=== PATIENT | male | born 1945 | race Caucasian/White ===

== ENCOUNTER 2022-08-11 11:59 | Outpatient (REF) | payer MEDICARE, BC, SELFPAY ==
[2022-08-11 13:23] LABS: MANUAL DIFF FLAG NO
[2022-08-11 13:27] LABS: Basophils Percent Auto 0.3 % (0-2); Eosinophils Percent Auto 0.5 % (0-4); Hemoglobin 14.3 g/dl (14.0-18.0); Imm Gran Abs Auto 0.02 X10*3/uL (0.00-0.03); Imm Gran Pct Auto 0.3 % (0.0-0.4); Lymphocytes Absolute Auto 0.7 X10*3/uL (1.2-4.9); Lymphocytes Percent Auto 11.2 % (20-40); Mean Corpuscular HGB Conc 33.3 g/dl (31.0-36.0); Mean Corpuscular Hemoglobin 30.9 pg (27.0-33.0); Mean Corpuscular Volume 92.9 fL (80.0-98.0); Mean Platelet Volume 9.8 fL (9.4-12.4); Monocytes Absolute Auto 0.6 X10*3/uL (0.1-1.2); Monocytes Percent Auto 9.9 % (2-11); Neutrophils Absolute Auto 4.8 x10*3/uL (2.0-8.3); Neutrophils Percent Auto 77.8 % (45-73); Platelet Count 166 X10*3/uL (160-400); Red Blood Count 4.63 X10*6/uL (4.60-5.80); Red Cell Distribution Width 12.3 % (11.0-16.0); White Blood Count 6.2 X10*3/uL (4.8-10.8)
[2022-08-11 14:04] LABS: Alanine Aminotransferase 16 U/L (0-40); Albumin Level 4.3 g/dL (3.5-5.0); Alkaline Phosphatase 75 U/L (39-117); Anion Gap 11 (12-20); Aspartate Amino Transferase 17 U/L (5-37); Bilirubin Total 0.9 mg/dL (0.0-1.0); Blood Urea Nitrogen 21 mg/dL (9-16); Calcium 9.3 mg/dL (8.4-10.2); Carbon Dioxide 31 mmol/L (22-29); Chloride 105 mmol/L (96-108); Estimated Glomerular Filt Rate > 60; Glucose Random 93 mg/dL (60-115); Magnesium 2.3 mg/dL (1.6-2.6); Potassium 4.1 mmol/L (3.3-5.1); Sodium 143 mmol/L (135-145); Total Protein 6.7 g/dL (6.5-8.0)
[2022-08-11 14:15] LABS: Erythrocyte Sedimentation Rate 7 MM/HR (0-15)
[2022-08-11 15:17] LABS: Folate 14.5 ng/mL (> or = 4.0); Free T4 (Free Thyroxine) 0.95 ng/dL (0.71-1.85); Thyroid Stimulating Hormone 2.85 uIU/mL (0.32-4.0); Vitamin B12 436 pg/mL (200-900)
== END 2022-08-11 12:00 | disposition home or self-care (01) ==
LOC: HO.10HDL 11:59
PROVIDERS: Visit Provider Internal Medicine Medical Oncology
DX: I25.10 Atherosclerotic heart disease of native coronary artery without angina pectoris (principal); C44.91 Basal cell carcinoma of skin, unspecified; C32.9 Malignant neoplasm of larynx, unspecified; E78.2 Mixed hyperlipidemia
CPT/HCPCS: 36415; 80053; 82607; 82746; 83735; 84134; 84439; 84443; 85025; 85652

== ENCOUNTER 2022-08-18 07:42 | Outpatient (REF) | payer MEDICARE, BC, SELFPAY ==
--- NOTE | ~2022-08-18 | CT_ITS ---
EXAMINATION: CT HEAD WITHOUT CONTRAST CLINICAL INFORMATION: Malignant neoplasm of the larynx. Worsening neurologic problems. Difficulty walking, and drooling. COMPARISON: None available. TECHNIQUE: Contiguous axial imaging was performed from the skull base to vertex without intravenous administration of contrast. This CT examination was performed using dose optimization techniques as appropriate, variously including the following: *Automated exposure control *Adjustment of mA and/or kV according to patient size (this includes techniques or standardized protocols for targeted exams where dose is matched to indication/reason for exam; i.e. extremities or head) *Use of iterative reconstruction technique DLP: 831 mGy-cm FINDINGS: There is no evidence of an extra-axial collection. There is no evidence of intra-axial or extra-axial hemorrhage. The ventricles and extra-axial CSF spaces are prominent suggestive of mild generalized atrophy. 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 No mass, mass effect or acute infarct. Review at bone windows is normal. No skull fracture or bone lesion. Visualized paranasal sinuses, mastoid air cells and middle ears are clear. 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
== END 2022-08-18 07:43 | disposition home or self-care (01) ==
LOC: HO.CT 07:42
PROVIDERS: PCP Internal Medicine Medical Oncology; Visit Provider Internal Medicine Medical Oncology
DX: C32.9 Malignant neoplasm of larynx, unspecified (principal)
CPT/HCPCS: 70450

== ENCOUNTER 2022-08-27 11:17 | Outpatient (REF) | payer MEDICARE, SELFPAY ==
--- NOTE | ~2022-08-27 | FL_ITS ---
EXAMINATION: FL MODIFIED BARIUM SWALLOW CLINICAL INFORMATION: Malignant neoplasm of larynx. COMPARISON: None available. TECHNIQUE: Routine modified barium swallow was performed in lateral projection in presence of speech therapist. FINDINGS: On oral administration of thin barium, nectar consistency barium, there is clark laryngeal penetration or aspiration. Otherwise there is normal propagation of bolus with all consistencies of barium from the oral cavity through the pharynx into the cervical esophagus. There is normal oral mastication of solid food. FLUOROSCOPY TIME: 4.1 minutes DOSE AREA PRODUCT: 3.438 uGy-m2 (microgray-meter squared) FL/FL barium swallow modified IMPRESSION: Laryngeal aspiration seen with thin barium and nectar consistency barium. Correlate with speech therapy results.
--- NOTE | 2022-09-01 09:28 | MHC.SL.IMP ---
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 Pt attended this exam accompanied by his son-in-law. Pt denies having any trouble swallowing. Pt denies odynophagia and globus sensation. Pt reports he eats regular textures and has no difficulties with liquids. His son-in-law reports at times pt has difficulty managing saliva. Pt had a head CT on 08/18/22 which showed, ?mild generalized atrophy and old-appearing right frontoparietal infarct.? Oral Motor Exam Mouth Occlusion: Normal Oral-Facial Teeth Characteristics: Partially Missing Oral-Facial Teeth Miscellaneous Observation: Pt reports having no back molars Tongue Size: Normal Tongue Excursion Description: Normal Tongue Range of Movement Description: Normal Tongue Speed of Movement Description: Normal Tongue Strength of Movement (against opposing pressure): Normal Food and Liquid Trials: Oral Impairment: Lip Closure: 0=No labial escape Oral Impairment: Tongue Control During Bolus Hold: Did not test Oral Impairment: Bolus Preparation/Mastication: 1=Slow prolonged chewing/mashing with complete re-collection Oral Impairment: Bolus Transport/Lingual Motion: 3=Repetitive/disorganized tongue motion Oral Impairment: Oral Residue: 2=Residue collection on oral structures Oral Impairment:Initiation of Pharyngeal Swallow: 1=Bolus head in valleculae Pharyngeal Impairment: Soft Palate Elevation: 0=No bolus between soft palate (SP)/pharyngeal wall (PW) Pharyngeal Impairment: Laryngeal Elevation: 0=Complete superior movement of thyroid cartilage (see description) Pharyngeal Impairment: Anterior Hyoid Excursion: 1=Partial anterior movement Pharyngeal Impairment: Epiglottic Movement: 1=Partial inversion Pharyngeal Impairment: Laryngeal Vestibular Closure:: 1=Incomplete: narrow column air/contrast in laryngeal vestibule Pharyngeal Impairment: Pharyngeal Stripping Wave: 0=Present: complete Pharyngeal Impairment: Pharyngeal Contraction: Did not test Pharyngeal Impairment: Pharyngoesophageal Segment Openin=Complete distension and complete duration: no obstruction of flow Pharyngeal Impairment: Tongue Base (TB) Retraction: 2=Narrow column of contrast/air between TB and posterior PW Pharyngeal Impairment: Pharyngeal Residue: 2=Collection of residue within or on pharyngeal structures Pharyngeal Impairment: Esophageal Clearance Upright Position: Did not test Impressions and Recommendations Clinical Observations: OBJECTIVE: Time-out: performed at 11:50 Evaluation Start: 11:30; Stop: 11:38 Patient Positioning: Seated 70-90 degrees Viewing Planes: LATERAL ONLY Contrast: MBSImP? Standardized Protocol using commercially prepared, standardized Barium viscosities, including: Varibar? THIN LIQUID (40% w/v, <15 cps) , Varibar? NECTAR (40% w/v, <150-450 cps) , Varibar? THIN HONEY (40% w/v, <800-1800 cps) , 1/2 Shortbread Cookie (1 x1 x.25 ) MBSImP ID: [id number] MBSImP Results: Lip closure for intraoral bolus containment resulted in no labial escape. Tongue control during bolus hold could not be assessed due to logistical reasons not related to physiologic impairment. Bolus preparation and mastication resulted in slow, prolonged chewing/mashing but with complete re-collection. Bolus transport/lingual motion was with repetitive/disorganized motion of the tongue. Oral residue was a collection on oral structures. Initiation of the pharyngeal swallow occurred when the bolus head was in the valleculae. Soft palate elevation resulted in no bolus between the soft palate and the pharyngeal wall. Laryngeal elevation demonstrated complete superior movement of the thyroid cartilage with complete approximation of the arytenoids to the epiglottic petiole. Anterior hyoid excursion demonstrated partial anterior movement. Epiglottic movement resulted in partial inversion. Laryngeal vestibular closure was incomplete, with a narrow column of air/contrast noted within the laryngeal vestibule at the height of the swallow. Pharyngeal stripping wave was present and complete. Pharyngeal contraction could not be determined due to logistical reasons not related to physiologic impairment. Pharyngoesophageal segment opening was completely distended for complete duration with no obstruction of bolus flow. Tongue base retraction allowed a narrow column of contrast or air between the retracted tongue base and the posterior pharyngeal wall. Pharyngeal residue was a collection of residue within or on pharyngeal structures. Esophageal clearance in the upright position could not be assessed due to logistical reasons not related to physiologic impairment. Oral Impairment Score: 7 (absence of score, component 2) Pharyngeal Impairment Score: 7 (absence of score, component 13) Esophageal Impairment Score: --- (absence of score, component 17) Laryngeal Penetration and Aspiration: Aspiration was observed in today's study. [place]-thick, Thin Contrast entered the airway, passed below the vocal folds, and no effort were made to eject. ASSESSMENT: This exam was conducted by a multidisciplinary team, which included a speech pathologist, radiologist, and low voltage technician. Pt was seated upright at 90 degrees for lateral view only. Pt trialed the following liquid and solid consistencies: thin liquid barium by cup, nectar thick liquid barium by cup, honey thick liquid barium by cup, pureed solid (applesauce mixed with barium paste), ground solid (mixture chicken salad with barium paste), regular solid (Taty Doone cookie coated with barium paste), whole barium pill tablet with sips of nectar thick barium. There was good lip closure with no anterior escape of bolus. Mastication was mildly prolonged and slowed. Posterior lingual motion characterized by repetitive tongue pumping. There was mild residue on the tongue and the hard palate, which cleared with subsequent swallows. Pharyngeal swallow trigger initiated as the bolus head reached the valleculae. There was no nasopharyngeal reflux. Partial anterior hyoid excursion. The epiglottis was notably inverted, resulting in incomplete closure as well as increased vallecular retention. Laryngeal vestibular closure was incomplete. There was clark aspiration during the swallow on trials of thin liquid. Thin liquid barium entered the airway and passed below the vocal folds, with no reflexive cough response. Pt was prompted to elicit a volitional cough. Pt?s cough was weak and did not clear the contrast from the airway. Episode of aspiration on trial of nectar thick liquid, with contrast entering the airway and passing below the vocal folds during the swallow. Again, pt did not produce a spontaneous cough response. He was prompted for a strong, volitional cough again, which appeared to at least reduce contrast from the airway. There was trace residue on the tongue base and posterior pharyngeal wall. Mild to moderate retention in the valleculae. Pt was able to reduce vallecular collection with multiple dry swallows, with and without chin tuck positioning. Barium pill tablet passed through the oral cavity and pharynx with no hang up. The following compensatory strategies have not been used until today's study, but when employed, improved swallowing function: Honey-thick Liquid eliminated Penetration, Aspiration Bolus Volume Change decreased Oral Residue, Pharyngeal Residue Rate of Ingestion Change decreased Oral Residue, Pharyngeal Residue Chin Tuck decreased Pharyngeal Residue Additional Swallow(s) per Bolus decreased Oral Residue, Pharyngeal Residue Liquid Intake Recommendation: Honey Thick Liquid Intake Strategies: Small Sips, No Straws, Double Swallow Dietary Recommendations: Regular (soft, easy to chew) Medication Administration: Whole with Puree Please contact the pharmacy regarding appropriate crushable or liquid drug formulations that are available whenever modified delivery is recommended. Compensatory Strategies Recommended: Sitting Upright (90 deg), Double Swallow, No Straw, Small Bites and Sips, Rate of Ingestion Change, Avoid Specific Foods Supervision during eating and or drinking: Total Supervision (1:1) Recommended Treatments: Compens. Strategy Educat. Recommendation for Speech Therapy: Outpatient Speech Therapy Modified Barium Swallow Study - Outpatient Text Comment: PLAN: Intake Recommendations: Route: PO Diet Grade: Regular Liquid Consistencies: Honey Post-Study Functional Oral Intake Scale (FOIS): 5- Total oral intake of multiple consistencies requiring special preparation Pt presents with moderate oropharyngeal dysphagia. This exam revealed silent aspiration with trials of thin liquid and nectar thick liquid due to incomplete closure of laryngeal structures. There was mild to moderate collection of contrast in the valleculae due to inverted position of the epiglottis. Pt was able to reduce residuals with multiple swallows (with and without chin tuck position on dry swallow only). Pt reports he does not have any back molars. Recommend HONEY THICK liquid by teaspoon or individual cup sip; recommend pt to self-select soft, easy to chew textures. Pt is at risk of aspiration, thus is recommended STRICT ASPIRATION PRECAUTIONS: -Oral care before first meal and after each subsequent meal -Sit upright during PO intake and for at least 30 minutes afterwards -Moisten food with sauces and gravies, which are thickened to honey consistency, and mixed/blended in well with food -Avoid sticky, crunchy, or hard foods -Avoid mixed textures and thin sauces (liquid from puree; soups; cereal with milk) -Take small bites and chew food well -Follow each bite with 1-2 dry swallows to promote pharyngeal clearance -Take small, individual sips by spoon or cup -Follow each sip with 1-2 dry swallows to promote pharyngeal clearance -Avoid the use of straws Recommend weekly visits with INTERNAL COMMUNICATIONS SPECIALIST for dysphagia treatment targeting further education (RE: MBSS results, risk of aspiration, recommended dysphagia diet guidelines, aspiration precautions), compensatory strategies, and to trial pharyngeal strengthening exercises; with repeat-MBSS in 15 weeks. Pt may also benefit from referral to Neurology, given impaired swallow and previous head CT showing ?old-appearing infarct.? Therapy Recommendations: Therapy will be continued Frequency per Week: 1 Number of Weeks: 8; repeat MBSS Prognosis for Improvement: The prognosis for the patient to meet nutritional needs by mouth is fair based on degree of impairment, stimulability for treatment. Group Home Goals: ? The patient will tolerate the least restrictive diet with a safe/efficient swallow to maintain adequate nutrition and hydration. ? The patient and/or family will participate in further education for swallowing goals. Short Term Goals: ? Diet - The patient will tolerate a regular diet with honey thick liquids without signs or symptoms of penetration/aspiration 100% of the time. ? Guidelines - The patient will comply with/recall the following guidelines/strategies 100% of the time with minimal cuing: Honey-thick Liquid, Bolus Volume Change, Rate of Ingestion Change, Chin Tuck, Additional Swallow(s) per Bolus. ? Education - The patient, family, caregiver will verbalize/demonstrate understanding of the results of this evaluation, the above recommendations, and the swallowing guidelines. Frequency/Duration: 1x weekly x 8 weeks Date Range for Service Requested: Timeline to reassess: 3 months Clinician - Supplemental, Miscellaneous Communication: It is important to note MBSS objective studies are snapshots in time and Patient function might vary with factors such as time of day or concomitant medical conditions. For this reason, the final treatment plan for this patient should rest with their medical care team. Additional recommendations should be considered with the totality of the Patient in mind. Thank for the opportunity to participate in the care of this patient. If you have any questions about the content of this report, please contact the [facility] at [facility]. Education: Education regarding findings from today's study and plans for therapy were provided to Patient and family/caregiver through Verbal Instruction. Understanding was expressed by the Patient and family/caregiver. Tenant Relations Coordinator Clinician/Clinical Fellow: No Supervisory Statement: N/A Speech Language Pathologist: Patricia Palacios M.A., [facility]-INTERNAL COMMUNICATIONS SPECIALIST
--- NOTE | 2022-09-29 13:19 | MHC.SPEECHCO ---
humanities coordinator called pt's contact number to schedule outpatient speech therapy for dysphagia. Pt's requested she speak with pt's daughter. Per daughter, pt is receiving [facility]. Family will discuss with visiting FLOORING MACHINE OPERATOR whether continued services are recommended after discharge from [facility], and will contact [facility] to schedule if that is the case.
== END 2022-08-27 11:18 | disposition home or self-care (01) ==
LOC: HO.XRAY 11:17
PROVIDERS: PCP Internal Medicine Medical Oncology; Visit Provider Internal Medicine Medical Oncology
DX: C32.9 Malignant neoplasm of larynx, unspecified (principal); R13.12 Dysphagia, oropharyngeal phase
CPT/HCPCS: 74230; 92611

== ENCOUNTER 2022-08-30 04:39 | Emergency (ER) | payer MEDICARE, SELFPAY ==
[2022-08-30] VITALS (12 sets, daily range): BP systolic 111–158; BP diastolic 65–96; PULSE 51–80; RESP 13–16; TEMP 36.6–36.8; O2SAT 93–97; BMI 24.3
--- NOTE | ~2022-08-30 | XR_ITS ---
EXAMINATION: XR CHEST CLINICAL INFORMATION: Cough. COMPARISON: None available. TECHNIQUE: Frontal view of the chest was obtained. FINDINGS: The lungs are well-expanded and clear of acute pneumonic process. There is a 4 mm calcified nodule left upper lobe likely granuloma. Heart size and pulmonary vascularity is normal. No gross bony abnormality seen. XR/XR chest 1V IMPRESSION: 4 mm calcified nodule left upper lobe. No acute cardiopulmonary process seen.
--- NOTE | ~2022-08-30 | CT_ITS ---
EXAMINATION: CT HEAD WITHOUT CONTRAST CLINICAL INFORMATION: Head injury. Altered mental status. COMPARISON: CT head from 08/18/2022. TECHNIQUE: Contiguous axial imaging was performed from the skull base to vertex without intravenous administration of contrast. This CT examination was performed using dose optimization techniques as appropriate, variously including the following: *Automated exposure control. *Adjustment of mA and/or kV according to patient size (this includes techniques or standardized protocols for targeted exams where dose is matched to indication/reason for exam; i.e. extremities or head). *Use of iterative reconstruction technique. DLP: 1454 mGy-cm FINDINGS: There is chronic encephalomalacia within the anterolateral right frontal lobe with associated volume loss. No additional loss of liu-white matter differentiation. No evidence of acute intracranial hemorrhage. Scattered and partially confluent hypoattenuation in the periventricular and deep white matter are consistent with mild to moderate microangiopathy. Proportional prominence of the ventricles and sulcal spaces without evidence of obstructive hydrocephalus. No abnormal mass effect or midline shift. No extra-axial fluid collections. No acute soft tissue or osseous abnormalities. The mastoid air cells and visualized paranasal sinuses are clear. CT/CT head/brain wo IV con IMPRESSION: 1. No evidence of acute intracranial hemorrhage or edematous territorial infarction. 2. 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 Mild to moderate underlying microangiopathy and generalized cerebral volume loss.
--- NOTE | 2022-08-30 04:51 | ECG_ITS ---
Test Reason : SYNCOPE Blood Pressure : / mmHG Vent. Rate : 065 BPM Atrial Rate : 065 BPM P-R Int : 104 ms QRS Dur : 098 ms QT Int : 430 ms P-R-T Axes : 072 -09 041 degrees QTc Int : 447 ms Sinus rhythm with marked sinus arrhythmia with short SD ST depression, consider subendocardial injury Abnormal ECG No previous ECGs available Referred By: Kelsey Molina Electronically Signed By:NICK MACIEL MD
--- NOTE | 2022-08-30 05:32 | ED_ITS ---
HPI - General Adult General Chief complaint: Fall Stated complaint: Weakness, difficulty ambulating Time Seen by Provider: 08/30/22 04:50 Source: patient and family (Daughter) Mode of arrival: EMS History of Present Illness HPI narrative: 77-year-old male is brought in by EMS after they were called for a lift assist and patient was noted to have found his way out of the bed that had a bed rail. The was unable to help him up and had to call EMS. Patient has had ongoing hallucinations for over a month, he was recently started on Parkinson's medication that did help with baseline tremors. 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 As per the daughter they have initiated placement through [facility], patient has not had any issues with fever, chills, nausea, vomiting. He walks with a walker at baseline. Related Data Home Medications Medication Instructions Recorded Confirmed aspirin 81 mg PO DAILY 08/30/22 08/30/22 atorvastatin 10 mg tablet 10 mg PO DAILY 08/30/22 08/30/22 carbidopa 25 mg-levodopa 100 mg tab PO 08/30/22 tablet metoprolol succinate 25 mg 25 mg PO DAILY 08/30/22 08/30/22 tablet,extended release 24 hr mirtazapine 15 mg tablet 15 mg PO BEDTIME 08/30/22 08/30/22 mupirocin 2 % topical ointment topical QD-BID 08/30/22 tamsulosin 0.4 mg capsule 0.4 mg PO DAILY 08/30/22 08/30/22 Allergies Allergy/AdvReac Type Severity Reaction Status Date / Time No Known Allergies Allergy Verified 08/30/22 05:59 Review of Systems Review of Systems: Pertinent positives and negatives as stated in HPI [facility] Past Medical History Source: nursing notes reviewed Social History Social History Alcohol intake: current Alcohol intake frequency: holidays/special occasions only Alcohol type: wine Smoked in Last 30 Days: No Use of substances other than those prescribed or required for medical reasons: No Advance Directives: No Advance Directives Information Provided: No Physical Exam ED Vital Signs: Vital Signs - 24 hr 08/30/22 04:47 Temperature 98.3 F Pulse Rate 67 Respiratory Rate 16 Blood Pressure 146/75 H Pulse Oximetry 96 Oxygen Delivery Method Room Air BMI result Body Mass Index 24.3 VITAL SIGNS: Reviewed. GENERAL: Well developed, well nourished, in no acute distress. HEAD: Normocephalic/atraumatic EYES: PERRLA, EOMI EARS: Ext canals without abnormality NOSE: Nares patent bilateral OROPHARYNX: no oral lesions noted, posterior pharynx clear NECK: Supple, no adenopathy LUNGS: Normal breath sounds. No adventitious sounds or accessory muscle use. SpO2<96> CARDIOVASCULAR: Regular rate and rhythm without noted murmurs, no JVD or lower extremity edema. ABDOMEN: Soft, non-tender, non-distended with bowel sounds. MUSCULOSKELETAL: No tenderness, deformities, or effusions noted on gross inspection. EXTREMITIES: No cyanosis, clubbing or edema; superficial abrasion noted to the left knee SKIN: Inspection of the skin reveals no rashes, ulcerations, jaundice, pallor, or petechiae. NEUROLOGIC: Alert and oriented x 2. Strength and sensation to light touch were grossly intact x 4, baseline tremors noted, left corner of the mouth droop. Medical Decision Making Medical Decision Making MDM Narrative: 77-year-old male with history and clinical exam findings consistent with weakened in chronically debilitated state, after hearing the history he appears to ever in brought here for expeditious placement given 's difficulties with being able to care for him at home. He otherwise is alert and interactive, but story is inaccurate as he will tell you that they had company over and they went to see a soccer match which is untrue. - labs, UA, EKG I reviewed all investigations and patient is medically cleared for further evaluation by case management and physical therapy. I have noted the elevation in sodium and chloride and suspect that this will resolve with encouragement of water. Patient placed in physician observation because the patient needed more time for evaluation by case management and physical therapy. At the time observation was started the patient's vital signs were stable, patient is alert and disoriented at baseline, neuro: Nonfocal, CV RRR, lungs clear Differential Diagnosis Please see the discussion above Lab Data Please see the discussion above 08/30/22 05:43 08/30/22 05:43 Labs: Lab Results 08/30/22 08/30/22 08/30/22 Range/Units 05:43 05:43 05:43 WBC 7.9 (4.8-10.8) X10*3/uL RBC 4.29 L (4.60-5.80) X10*6/uL Hgb 13.5 L (14.0-18.0) g/dl Hct 40.9 L (42.0-52.0) % MCV 95.3 (80.0-98.0) fL MCH 31.5 (27.0-33.0) pg MCHC 33.0 (31.0-36.0) g/dl RDW 12.5 (11.0-16.0) % Plt Count 172 (160-400) X10*3/uL MPV 9.3 L (9.4-12.4) fL Immature Gran % (Auto) 0.3 (0.0-0.4) % Neut % (Auto) 78.2 H (45-73) % Lymph % (Auto) 11.3 L (20-40) % [place] % (Auto) 8.5 (2-11) % Eos % (Auto) 1.3 (0-4) % Baso % (Auto) 0.4 (0-2) % Lymph # (Auto) 0.9 L (1.2-4.9) X10*3/uL [place] # (Auto) 0.7 (0.1-1.2) X10*3/uL Eos # (Auto) 0.1 (0.0-0.4) X10*3/uL Baso # (Auto) 0.0 (0.0-0.2) X10*3/uL Abs Immat Gran (auto) 0.02 (0.00-0.03) X10*3/uL Absolute Neuts (auto) 6.2 (2.0-8.3) x10*3/uL Absolute Nucleated RBC 0.000 (0.0-0.012) X10*3/uL Nucleated RBC % (auto) 0.0 (0.0-0.2) /100WBC PT 11.1 (10.0-13.1) SEC INR 1.0 (0.9-1.1) Sodium 148 H (135-145) mmol/L Potassium 4.5 (3.3-5.1) mmol/L Chloride 111 H (96-108) mmol/L Carbon Dioxide 27 (22-29) mmol/L Anion Gap 15 (12-20) BUN 24 H (9-16) mg/dL Creatinine 1.10 (0.5-1.4) mg/dL Estim Creat Clear Calc 62.7 Estimated GFR > 60 Random Glucose 125 H (60-115) mg/dL Calcium 9.6 (8.4-10.2) mg/dL Total Bilirubin 0.6 (0.0-1.0) mg/dL AST 18 (5-37) U/L ALT 11 (0-40) U/L Alkaline Phosphatase 98 (39-117) U/L Troponin I High Sens (<3.5-35.0) ng/L Total Protein 6.9 (6.5-8.0) g/dL Albumin 4.2 (3.5-5.0) g/dL Urine Color Urine Appearance Urine pH (5.0-9.0) Ur Specific [place] (1.005-1.025) Urine Protein (Neg-Trace) mg/dL Urine Glucose (UA) (Negative) mg/dL Urine Ketones (Negative) mg/dL Urine Blood (Negative) Urine Nitrite (Negative) Ur Leukocyte Esterase (Negative) 08/30/22 08/30/22 Range/Units 05:43 06:10 WBC (4.8-10.8) X10*3/uL RBC (4.60-5.80) X10*6/uL Hgb (14.0-18.0) g/dl Hct (42.0-52.0) % MCV (80.0-98.0) fL MCH (27.0-33.0) pg MCHC (31.0-36.0) g/dl RDW (11.0-16.0) % Plt Count (160-400) X10*3/uL MPV (9.4-12.4) fL Immature Gran % (Auto) (0.0-0.4) % Neut % (Auto) (45-73) % Lymph % (Auto) (20-40) % [place] % (Auto) (2-11) % Eos % (Auto) (0-4) % Baso % (Auto) (0-2) % Lymph # (Auto) (1.2-4.9) X10*3/uL [place] # (Auto) (0.1-1.2) X10*3/uL Eos # (Auto) (0.0-0.4) X10*3/uL Baso # (Auto) (0.0-0.2) X10*3/uL Abs Immat Gran (auto) (0.00-0.03) X10*3/uL Absolute Neuts (auto) (2.0-8.3) x10*3/uL Absolute Nucleated RBC (0.0-0.012) X10*3/uL Nucleated RBC % (auto) (0.0-0.2) /100WBC PT (10.0-13.1) SEC INR (0.9-1.1) Sodium (135-145) mmol/L Potassium (3.3-5.1) mmol/L Chloride (96-108) mmol/L Carbon Dioxide (22-29) mmol/L Anion Gap (12-20) BUN (9-16) mg/dL Creatinine (0.5-1.4) mg/dL Estim Creat Clear Calc Estimated GFR Random Glucose (60-115) mg/dL Calcium (8.4-10.2) mg/dL Total Bilirubin (0.0-1.0) mg/dL AST (5-37) U/L ALT (0-40) U/L Alkaline Phosphatase (39-117) U/L Troponin I High Sens 7.2 (<3.5-35.0) ng/L Total Protein (6.5-8.0) g/dL Albumin (3.5-5.0) g/dL Urine Color Yellow Urine Appearance Clear Urine pH 7.5 (5.0-9.0) Ur Specific [place] 1.020 (1.005-1.025) Urine Protein Negative (Neg-Trace) mg/dL Urine Glucose (UA) Negative (Negative) mg/dL Urine Ketones Negative (Negative) mg/dL Urine Blood Negative (Negative) Urine Nitrite Negative (Negative) Ur Leukocyte Esterase Negative (Negative) Independent Interpretation I performed an independent interpretation of an: EKG Interpretation: Sinus rhythm, HR-65, no STEMI, ID/QRS/QTC is within normal limits, ST depressions are questionable with the background artifact. Radiology Impression Radiologist Impression: My interpretation is in agreement with radiology's impression of the imaging studies. Discharge Plan Discharge Clinical Impression: Physical deconditioning, Parkinson's disease Patient Disposition: Still a Patient Prescriptions: No Action atorvastatin 10 mg tablet 10 mg PO DAILY tamsulosin 0.4 mg capsule 0.4 mg PO DAILY mupirocin 2 % ointment topical QD-BID mirtazapine 15 mg tablet 15 mg PO BEDTIME metoprolol succinate 25 mg tablet extended release 24 hr 25 mg PO DAILY carbidopa-levodopa 25-100 mg tablet PO aspirin 81 mg 81 mg PO DAILY
[2022-08-30 05:48] LABS: Basophils Percent Auto 0.4 % (0-2); Eosinophils Absolute Auto 0.1 X10*3/uL (0.0-0.4); Eosinophils Percent Auto 1.3 % (0-4); Hematocrit 40.9 % (42.0-52.0); Hemoglobin 13.5 g/dl (14.0-18.0); Imm Gran Abs Auto 0.02 X10*3/uL (0.00-0.03); Imm Gran Pct Auto 0.3 % (0.0-0.4); Lymphocytes Absolute Auto 0.9 X10*3/uL (1.2-4.9); Lymphocytes Percent Auto 11.3 % (20-40); MANUAL DIFF FLAG NO; Mean Corpuscular Hemoglobin 31.5 pg (27.0-33.0); Mean Corpuscular Volume 95.3 fL (80.0-98.0); Mean Platelet Volume 9.3 fL (9.4-12.4); Monocytes Absolute Auto 0.7 X10*3/uL (0.1-1.2); Monocytes Percent Auto 8.5 % (2-11); Neutrophils Absolute Auto 6.2 x10*3/uL (2.0-8.3); Neutrophils Percent Auto 78.2 % (45-73); Platelet Count 172 X10*3/uL (160-400); Red Blood Count 4.29 X10*6/uL (4.60-5.80); Red Cell Distribution Width 12.5 % (11.0-16.0); White Blood Count 7.9 X10*3/uL (4.8-10.8)
[2022-08-30 05:53] LABS: Prothrombin Time 11.1 SEC (10.0-13.1)
--- OUTSIDE RECORDS SUMMARY | 2022-08-30 05:58 | XMS_ITS | Continuity of Care Document ---
Author Name Unknown Organization [facility] Address [address] [place] [phone]- Care Team Providers Care Gre Tutor Name Role Phone Rancho Burden MD Primary Care Physician Encounter [facility] [place] Date(s): 10/15/20 - 10/22/20 [facility] [address] [place] [id number] Attending Physician: Kael Angeles MD Admitting Physician: Kael Angeles MD Referring Physician: Rancho Burden MD Allergies, Adverse Reactions, Alerts Substance Reaction Severity Status NKA Active Medications acetaminophen 500 mg oral tablet By Mouth, Every 6 hours, 0 Refills, Maintenance, 09/21/13 12:36:31, Tablet Start Date: 09/21/13 Status: Ordered aspirin 325 mg oral tablet 1 tablet = 325 mg, By Mouth, Daily, # 30 tablet, 0 Refills, Maintenance, 09/20/13 21:07:09, Tablet Start Date: 09/20/13 Status: Ordered atorvastatin 10 mg oral tablet 1 tablet = 10 mg, By Mouth, Daily at bedtime, # 30 tablet, 0 Refills, Maintenance, 09/20/13 21:06:42, Tablet Start Date: 09/20/13 Status: Ordered Compression Stockings See Instructions, # 2 each, Refills 2, Tot. Refills 2, Maintenance, surgical, knee length 20-30 mm Hg DX Varicose Veins, 07/24/20 13:53:00 EDT, Supply Start Date: 07/24/20 Status: Ordered LORazepam 1 mg oral tablet 1 tablet = 1 mg, By Mouth, 3 times a day, PRN for anxiety, 0 Refills, Maintenance, 07/24/20 12:54:00 EDT, Tablet, Partial fill upon patient request if the prescription is for a schedule II opioid drug. Start Date: 07/24/20 Status: Ordered metoprolol 25 mg oral tablet 1 tablet = 25 mg, By Mouth, 2 times a day, # 60 tablet, 0 Refills, Maintenance, 09/20/13 21:06:08, Tablet Start Date: 09/20/13 Status: Ordered Vitamin D3 1000 intl units oral capsule 1 capsule = 1,000 International_Units, By Mouth, Daily, # 100 capsule, 0 Refills, Maintenance, 07/24/20 12:55:00 EDT, Capsule, Partial fill upon patient request if the prescription is for a schedule II opioid drug. Start Date: 07/24/20 Status: Ordered
--- OUTSIDE RECORDS SUMMARY | 2022-08-30 05:58 | XMS_ITS | Continuity of Care Document ---
Author Name Unknown Organization [facility] Address [address] [place] [id number]- Care Team Providers Care Customer Retention Representative Name Role Phone Rancho Burden MD Primary Care Physician En[place] [facility] [place] [facility] [place] [id number] Date(s): 10/15/20 - 11/14/20 [facility] [address] [place], [place] [address] Attending Physician: Ean Patel Admitting Physician: AdmtrEna Referring Physician: AdmtrEna Allergies, Adverse Reactions, Alerts Substance Reaction Severity [...]
--- OUTSIDE RECORDS SUMMARY | 2022-08-30 05:58 | XMS_ITS | Continuity of Care Document ---
Author Name Unknown Organization [facility] Address [address] [place] [phone]- Care Team Providers Care Die Engraver Name Role Phone Bertram FRANCIS, Rancho Longoria Primary Care Physician [place] [facility] [place] [id number] Date(s): 08/01/20 - 08/31/20 [facility] [address] [place], [place] [address] Attending Physician: Ena Patel Admitting Physician: AdmtrEna Referring Physician: Admtr ArLayton Allergies, Adverse Reactions, Alerts Substance Reaction Severity [...]
--- OUTSIDE RECORDS SUMMARY | 2022-08-30 05:58 | XMS_ITS | Continuity of Care Document ---
Author Name Unknown Organization [facility] Address [address] [place] [phone]- Care Team Providers Care Rubber Stamp Dies Inspector Name Role Phone Rancho Burden MD Primary Care Physician Encounter [facility] [place] Date(s): 08/06/20 - 08/13/20 [facility] [address] [place], [place] [address] Attending Physician: Kael Angeles MD Admitting Physician: [...]
--- OUTSIDE RECORDS SUMMARY | 2022-08-30 05:58 | XMS_ITS | Continuity of Care Document ---
Author Name Unknown Organization [facility] Address [address] [place] [phone]- Care Team Providers Care Gas Meter Reader Name Role Phone Rancho Burden MD Primary Care Physician [place] [facility] [place](s): 01/12/21 - 03/06/21 [facility] [address] [place], [place] [address] Attending Physician: Kael Angeles MD Admitting Physician: [...]
--- OUTSIDE RECORDS SUMMARY | 2022-08-30 05:58 | XMS_ITS | Continuity of Care Document ---
Author Name Unknown Organization [facility] Address [address] [place] [phone]- Care Team Providers Care Learning And Development Manager Name Role Phone Rancho Burden MD Primary Care Physician En[place] [facility] [place] Date(s): 08/01/20 - 08/31/20 [facility] [address] [place], [place] [address] Allergies, Adverse Reactions, Alerts Substance Reaction Severity [...]
--- OUTSIDE RECORDS SUMMARY | 2022-08-30 05:58 | XMS_ITS ---
Author Name Allen Jean Address [address] [place] [address] Organization Allen Jean III, MD Address [address] [place] [address] Care Team Providers Care Packer Name Role Phone Allen Jean [facility] [phone] PROBLEMS Type Condition ICD9-CM Code LSR97-JE Code Onset Dates Condition Status SNOMED Code Problem CAD (coronary artery disease) I25.10 Active 57969095 Problem Unilateral inguinal hernia with obstruction and without gangrene, recurrence not specified K40.30 Active 34019369 Problem Benign prostatic hyperplasia without lower urinary tract symptoms N40.0 Active 885888919 Problem Unilateral inguinal hernia without obstruction or gangrene, recurrence not specified K40.90 Active 991338051 Problem Hyperlipemia E78.5 Active 65802408 Problem 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 Active 395076012 Problem Basal cell carcinoma C44.91 Active 133 8007 Problem HTN (hypertension) I10 Active 99727 003 Problem Impaired fasting glucose R73.01 Active 978612987 Problem Parkinson disease G20 Active 680343 00 Problem Excessive daytime sleepiness G47.19 Active 600214497327 Problem Apraxia R48.2 Active 27642649 Problem Rosacea, unspecified L71.9 Active 398 110428 Problem Mixed hyperlipidemia E78.2 Active 267 085931 Problem Gait disorder R26.9 Active 33137064 Problem Anxiety disorder, unspecified F41.9 Active 979413332 Problem Former smoker Z87.891 Active 1694215 Problem Coronary artery disease, unspecified vessel or lesion type, unspecified whether angina present, unspecified whether anvik or transplanted heart I25.10 Active Problem 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 Active Problem Weight loss, abnormal R63.4 Active 26 8125056 Problem Ataxia R27.0 Active ALLERGIES No Known Allergies ENCOUNTERS Encounter Location Date Diagnosis Allen Jean III, MD [address] [place] [address] [place] [address] August, Allen Jean III, MD [address] [place] [address] [place] [address] August, Allen Jean III, MD [address] [place] [address] [place] [address] August, Malignant neoplasm of larynx C32.9 ; Ataxia R27.0 and Urinary tract infection, site not specified N39.0 Allen Jean III, MD [address] [place] [address] [place] [address] August, Malignant neoplasm of larynx C32.9 and Ataxia R27.0 Allen Jean III, MD [address] [place] [address] [place] [address] August, CAD (coronary artery disease ) I25.10 ; Malignant neoplasm of larynx C32.9 ; Ataxia R27.0 ; 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 ; Hyperlipemia E78.5 ; HTN (hypertension) I10 ; Basal cell carcinoma C44.91 ; Anxiety disorder, unspecified F41.9 ; Benign prostatic hyperplasia without lower urinary tract symptoms N40.0 ; Unilateral inguinal hernia without obstruction or gangrene, recurrence not specified K40.90 and Excessive daytime sleepiness G47.19 Allen Jean III, MD [address] [place] [address] [place] [address] Jul, CAD (coronary artery disease ) I25.10 ; Anxiety disorder, unspecified F41.9 ; Impaired fasting glucose R73.01 ; HTN (hypertension) I10 ; Hyperlipemia E78.5 ; Malignant neoplasm of larynx C32.9 and Benign prostatic hyperplasia without lower urinary tract symptoms N40.0 Allen Jean III, MD [address] [place] [address] [place] [address] Jun, Mixed hyperlipidemia E78.2 ; Former smoker Z87.891 ; Unilateral inguinal hernia with obstruction and without gangrene, recurrence not specified K40.30 ; Excessive daytime sleepiness G47.19 ; Coronary artery disease, unspecified vessel or lesion type, unspecified whether angina present, unspecified whether anvik or transplanted heart I25.10 ; Benign prostatic hyperplasia without lower urinary tract symptoms N40.0 ; Malignant neoplasm of larynx C32.9 and HTN (hypertension) I10 Allen Jean III, MD [address] [place] [address] [place] [address] May, Allen Jean III, MD [address] [place] [address] [place] [address] May, Weakness R53.1 ; Coronary artery disease, unspecified vessel or lesion type, unspecified whether angina present, unspecified whether anvik or transplanted heart I25.10 ; Hyperlipidemia, unspecified hyperlipidemia type E78.5 ; Excessive daytime sleepiness G47.19 ; Basal cell carcinoma C44.91 ; HTN (hypertension) I10 ; Malignant neoplasm of larynx C32.9 and Benign prostatic hyperplasia without lower urinary tract symptoms N40.0 IMMUNIZATIONS Vaccine Route Administration Date Status Influenza no Preserv 3 and > Unknown Jan 21, 2014 Administered Influenza no Preserv 3 and > Unknown Jan 21, 2017 Administered Influenza no Preserv 3 and > Unknown Jan 07, 2022 Administered Influenza no Preserv 3 and > Unknown Jan 13, 2018 Administered Influenza no Preserv 3 and > Unknown Jan 07, 2015 Administered FLuzone HD PF Unknown Jan 01, 2020 Administered Influenza no Preserv 3 and > Unknown Dec 31 Administered COVID- 19 Vaccine Unknown July 01, 2020 Administ ered Influenza no Preserv 3 and > Unknown Jan 10, 2013 Administered COVID- 19 Vaccine Unknown June 03, 2020 Administ ered SOCIAL HISTORY Qualifiers Date Former Smoker REASON FOR REFERRAL FUNCTIONAL STATUS PLAN OF CARE Activity Details VITAL SIGNS Height 70 in 2022-08-11 Height 70 in 2022-07-07 Height 70 in 2022-06-28 Height 70 in 2022-05-05 Weight 166 lbs 2022-08-11 Weight 174 lbs 2022-07-07 Weight 174 lbs 2022-05-05 BMI 23.82 kg/m2 2022-08-11 BMI 24.96 kg/m2 2022-07-07 BMI 24.96 kg/m2 2022-05-05 Heart Rate 60 /min 2022-08-11 Heart Rate 63 /min 2022-07-07 Heart Rate 72 /min 2022-05-05 Temperature 97.0 degrees Fahrenheit Temperature 98.1 degrees Fahrenheit Oximetry 99 % 2022-05-05 Blood pressure systolic 120 mm Hg Blood pressure diastolic 66 mm Hg 2022-08 MEDICATIONS Medication Instructions Dosage Frequency Start Date End Date Duration Status Mirtazapine 15 MG Orally Once a day 1 tablet at bedtime 24h August, 30 day(s) Active Tamsulosin HCl 0.4 MG Orally Once a day 1 capsule 24h Active Mirtazapine 7.5 MG Orally Once a day 1 tablet at bedtime 24h August, 30 day(s) Active Aspirin 81 81 MG Orally Once a day 1 tablet 24h Active Vitamin D3 Complete - Orally Once a day as directed 24h Active Atorvastatin Calcium 10 MG Orally Once a day 1 tablet 24h Active Metoprolol Succinate ER 25 MG Orally Once a day 1 tablet 24h Active PROCEDURES Procedure Date Ordered Result Body Site MEASURE BLOOD OXYGEN LEVEL May 05, 2022 PHONE E/M BY PHYS 11-20 MIN June 28, 2022 RESULTS Name Result Date Reference Range FL barium swallow modified 2022-08-27 Complete Blood Count Auto Diff 2022-08-11 White Blood Count 6.2 4.8-10.8 Red Blood Count 4.63 4.60-5.80 Hemoglobin 14.3 14.0-18.0 Hematocrit 43.0 42.0-52.0 Mean Corpuscular Volume 92.9 80.0 -98.0 Mean Corpuscular Hemoglobin 30.9 27.0-33.0 Mean Corpuscular HGB Conc 33.3 31 .0-36.0 Red Cell Distribution Width 12.3 11.0-16.0 Platelet Count 166 160-400 Mean Platelet Volume 9.8 9.4-12. 4 Neutrophils Percent Auto 77.8 45- 73 Imm Gran Pct Auto 0.3 0.0-0.4 Lymphocytes Percent Auto 11.2 20- 40 Monocytes Percent Auto 9.9 2-11 Eosinophils Percent Auto 0.5 0-4 Basophils Percent Auto 0.3 0-2 NRBC Pct Auto 0.0 0.0-0.2 Neutrophils Absolute Auto 4.8 2. 0-8.3 Imm Gran Abs Auto 0.02 0.00-0.03 Lymphocytes Absolute Auto 0.7 1. 2-4.9 Monocytes Absolute Auto 0.6 0.1- 1.2 Eosinophils Absolute Auto 0.0 0. 0-0.4 Basophils Absolute Auto 0.0 0.0- 0.2 NRBC Abs Auto 0.000 0.0-0.012 Erythrocyte Sedimentation Rate 2022-08-11 Erythrocyte Sedimentation Rate 7 0-15 Comprehensive Met. Panel 2022-08-11 Sodium 143 135-145 Potassium 4.1 3.3-5.1 Chloride 105 96-108 Carbon Dioxide 31 22-29 Anion Gap 11 12-20 Blood Urea Nitrogen 21 9-16 Creatinine 0.86 0.5-1.4 Estimated Glomerular Filt Rate >60 Glucose Random 93 60-115 Calcium 9.3 8.4-10.2 Bilirubin Total 0.9 0.0-1.0 Aspartate Amino Transferase 17 5-37 Alanine Aminotransferase 16 0-4 0 Total Protein 6.7 6.5-8.0 Albumin Level 4.3 3.5-5.0 Alkaline Phosphatase 75 39-117 Vitamin B12 2022-08-11 Vitamin B12 436 200-900 Free T4 (Free Thyroxine) 2022-08-11 Free T4 (Free Thyroxine) 0.95 0.7 1-1.85 Thyroid Stimulating Hormone 2022-08-11 Thyroid Stimulating Hormone 2.85 0.32-4.0 Magnesium 2022-08-11 Magnesium 2.3 1.6-2.6 Prealbumin 2022-08-11 Prealbumin 33.0 20-40 Folate 2022-08-11 Folate 14.5 >or = 4.0 REASON FOR VISIT follow up, Rehab Referral, New Order, CT Order, Significant weight loss, Tremor, Chronic fatigue and weakness, Hypersomnia, Laceration left hand and a recent fall, August 07, 2022, Coronary artery disease, Chronic laryngeal cancer, Large inguinal hernia, Hyperlipidemia, Coronary artery disease, Anxiety, Hypertension, Hyperlipidemia, History of laryngeal cancer, Annual hernia, prostatic hypertrophy, Coronary artery disease, Anxiety, Hypertension, Hyperlipidemia, Benign prostatic hypertrophy, Daytimesomnolence, Possible Parkinson's disease, follow up, Test results, New patient [facility] Insurance Providers Health Insurance Type Health Plan Insurance Address Health Plan Insurance Phone Health Plan Insurance Name Health Plan Coverage Dates Member ID Patient Relationship to Subscriber Patient Address Patient Phone Patient Name Patient Date of Subscriber ID Subscriber Name Subscriber Date of Group No [employer] [address] [facility] [id number] [employer] self Keith Cage [id number] MEDICARE NGS [address] [place] [address] MEDICARE NGS self Keith Cage [id number]
--- OUTSIDE RECORDS SUMMARY | 2022-08-30 05:58 | XMS_ITS | Continuity of Care Document ---
Author Name Unknown Organization [facility] Address [address] [place] [id number] Care Team Providers Care Passenger Representative Name Role Phone Rancho Burden MD Primary Care Physician Encounter [facility] Date(s): 07/24/20 - 07/31/20 [facility] [address] [place], [place] [address] Attending Physician: Kael Angeles MD Admitting [...] opioid drug. Start Date: 07/24/20 Status: Ordered Vital Signs Most recent to oldest [Reference Range]: 1 Height 181 cm (07/24/20 12:52 PM) Weight 84.5 kg (07/24/20 12:52 PM) Oxygen Saturation [94-100 %] 98 % (07/24/20 12:52 PM) Pulse Rate [55-90 bpm] 69 bpm (07/24/20 12:52 PM) Body Mass Index [18.5-24.99] 25.79 *H* (07/24/20 12:52 PM) Blood Pressure [90-138/55-84 mm Hg] 160/ 90mm Hg *H* (07/24/20 12:52 PM) Mode of Delivery (Oxygen) Room air (07/24/20 12:52 PM) Blood pressure sites Arm, right (07/24/20 12:52 PM) Weight Obtained Via Patient/family state d (07/24/20 12:52 PM)
--- OUTSIDE RECORDS SUMMARY | 2022-08-30 05:58 | XMS_ITS | Continuity of Care Document ---
Author Name Unknown Organization [facility] Address [address] [place] [id number]- Care Team Providers Care Java Core Developer Name Role Phone Rancho Burden MD Primary Care Physician Encounter [facility] Date(s): 09/09/20 - 09/16/20 [facility] [address] [place], [place] [address] Attending Physician: Kael Angeles MD Admitting [...]
[2022-08-30 06:06] LABS: Alanine Aminotransferase 11 U/L (0-40); Albumin Level 4.2 g/dL (3.5-5.0); Alkaline Phosphatase 98 U/L (39-117); Anion Gap 15 (12-20); Aspartate Amino Transferase 18 U/L (5-37); Bilirubin Total 0.6 mg/dL (0.0-1.0); Blood Urea Nitrogen 24 mg/dL (9-16); Calcium 9.6 mg/dL (8.4-10.2); Carbon Dioxide 27 mmol/L (22-29); Chloride 111 mmol/L (96-108); Creatinine Clr Calc Pharmacy 62.7; Estimated Glomerular Filt Rate > 60; Glucose Random 125 mg/dL (60-115); Potassium 4.5 mmol/L (3.3-5.1); Sodium 148 mmol/L (135-145); Total Protein 6.9 g/dL (6.5-8.0)
[2022-08-30 06:09] LABS: Troponin-I High Sensitivity 7.2 ng/L (<3.5-35.0)
--- NOTE | 2022-08-30 06:16 | MHC.EDTECH ---
Assisted patient with urinal. Pt voided fine, urine specimens sent to lab. SG
[2022-08-30 06:17] LABS: Appearance Urine Clear; Color Urine Yellow; Glucose Urine UA Negative (Negative); Leukocyte Esterase Urine Negative (Negative); Nitrite Urine Negative (Negative); PH 7.5 (5.0-9.0); Urine Blood Negative (Negative); Urine Ketones Negative (Negative); Urine Protein Negative (Neg-Trace)
--- NOTE | 2022-08-30 06:33 | PC.NURSE ---
Pt A&Ox4, denies any pain. Reports sliding down while using urinal at home. Skin tear/ abrasion noted to left outer knee. Pt reports stuttering speech is from his Parkinson. Strong bilateral hand water taxi boat mate, no arm drift, equal sensation to legs, Pt able to move bilateral lower extremities off of bed. Daughter at bedside.
--- NOTE | 2022-08-30 06:55 | PC.NURSE ---
Resumed care of this patient this AM, he is resting comfortably in bed, daughter is at bedside currently. All safety measures in place.
--- NOTE | 2022-08-30 09:34 | PHA.MEDREC ---
Med rec complete, done by nursing, reviewed by pharmacy Pharmacy Consult ? Medication Reconciliation Pharmacy has completed the medication reconciliation.
--- NOTE | 2022-08-30 11:44 | PC.NURSE ---
pt had breakfast and is sleeping comfortably, family at bedside, awaiting CM consult. No apparent distress, will CTM
[2022-08-30 12:19] LABS: Glucose, Whole Blood 111 mg/dL (60-115)
--- NOTE | 2022-08-30 12:44 | PC.NURSE ---
physical therapist came to eval pt. Pt was very difficult to arouse from sleeping, which took several minutes. Pt responded to painful stimuli but was resistant to waking up even when wincing at painful stimuli. Pt was found to be low O2 - hovering in the 80s, as low as 79 during a bed linens change, Pt placed on oxymask 4L and O2 probe switched to forehead to get more accurate waveform. On the 4L, O2 has maintained at 97-100% and O2 has been lowered to 2L.
--- NOTE | 2022-08-30 13:05 | PC.NURSE ---
pt family states that left sided facial droop has been pt's baseline since approximatly february.
[2022-08-30 13:41] LABS: COVID-19 Test Negative (Negative); IDNOW Serial# BCCEAD1C
--- NOTE | 2022-08-30 13:42 | PC.NURSE ---
pt vitals remain stable. oxymask still in place at 1L due to mouth breathing and previous episode of desatting when asleep. awaiting CT scan and CM consult. will ctm
--- NOTE | 2022-08-30 14:02 | PC.NURSE ---
assisted pt with lunch. took pt off oxygen. Sats remain good on RA 95% with good pleth. will ctm
--- NOTE | 2022-08-30 15:02 | MHC.CM.ED ---
Received case management consult overnight. Patient came to the ER due to weakness and diff ambulating. Work up was essentially negative untile patient had episdoe of lethargy. Head CT performed. Waiting for report. Physical therapy met with patient currently this episode and recommended shelter care. Will ask PT to re-see patient tomorrow, Thursday 08/31, when patient's orientation is at his baseline. Met with patient, daughter Hailey, and son-in-law, Sixto. Patient lives with his , ambulates independently and has [facility] for snf and physical therapy. PCP verified. Hailey has a copy of patient's HCP and will be it to [facility] tomorrow. Patient received 3 Moderna vaccines. Hailey requesting referral to [facility]. Referral made at this time. Continue to monitor for d/c needs.
--- NOTE | 2022-08-30 15:31 | MHC.EDTECH ---
THIS PCT ASSUMED CARE OF PT AT 1500 ,VITALS SIGN TAKEN .PT WAS INC OF URINE ,CARE GIVEN BEDDING CHANGE ,PT SON AND DAUGHTER AT BEDSIDE ,WARM BLANKET GIVEN .
--- NOTE | 2022-08-30 17:45 | MHC.EDTECH ---
PATIENT WAS INCONIENT OF URINE ,CARE GIVEN ,BEDDING CHANGE ,PT DAUGHTER AT BEDSIDE .
--- NOTE | 2022-08-30 18:26 | PC.NURSE ---
pt resting comfortably, no apparent distress. Pt O2 remains good 95%+ on RA with good pleth
--- NOTE | 2022-08-30 19:04 | MHC.EDTECH ---
PT FED HIMSELF FOR DINNER ATE 100 % OF MEAL ,DRANK 600 ML FLUIDS .
--- NOTE | 2022-08-30 21:49 | MHC.EDTECH ---
Assisted Pt with toileting. Pt was able to void intpo urinal with assistance. PT repositioned and cleaned
[2022-08-31] VITALS (11 sets, daily range): BP systolic 76–158; BP diastolic 49–112; PULSE 51–611; RESP 12–18; TEMP 36.2; O2SAT 93–98
--- NOTE | 2022-08-31 04:02 | PC.NURSE ---
Pt has been asleep throughout the night. Pt is on library monitor and O2 monitoring at this time.
--- NOTE | 2022-08-31 05:58 | PC.NURSE ---
Pt is awake and alert at this time, daughter and son at the bedside. Pt had an episode of incontinence this morning. Pt was cleaned and repositioned. Pt was able to swallow thickened juice. Pt has no complaints at this time. Waiting PT/CM, daughter wants [facility]
[2022-08-31] MEDS: Aspirin Enteric Coated 81 MG TABLET.DR PO (07:10)
[2022-08-31] MEDS: Tamsulosin HCL 0.4 MG CAPSULE PO (07:10)
[2022-08-31] MEDS: Carbidopa/Levodopa 25/100 TABLET 0.5 TAB PO ×4 (07:11→20:33)
[2022-08-31] MEDS: Atorvastatin Calcium 10 MG TABLET PO (07:11)
[2022-08-31] MEDS: Metoprolol Succinate ER 25 MG TAB.ER.24H PO (07:12)
--- NOTE | 2022-08-31 07:15 | PC.NURSE ---
Alert and oriented. Denies pain. Good po intake and appetite for breakfast. No sob noted sating 95% on RA. Daughter at bedside.
[2022-08-31] MEDS: Mupirocin 2 % Oint 22 GM TUBE 1 APPL TOPICAL ×2 (07:30→20:33)
--- NOTE | 2022-08-31 08:54 | PC.NURSE ---
Alert and oriented, stood to void using urinal. Reports no pain or discomfort. Waiting for case management for rehab placement.
--- NOTE | 2022-08-31 10:38 | PC.NURSE ---
PT at bedside for re evaluation
--- NOTE | 2022-08-31 10:40 | PC.NURSE ---
Alert and oriented. PT in to see patient for rehab placement
--- NOTE | 2022-08-31 14:15 | MHC.CM.ED ---
Pt has been accepted to [facility] for 09/01 at 3:30pm. Jim STODDARD arranged: Family in room w/pt and updated on d/c plan.
--- NOTE | 2022-08-31 15:02 | PC.NURSE ---
Ambulated in hallway with two assist. Sitting up in fam chair
--- NOTE | 2022-08-31 16:19 | PC.NURSE ---
Alert and oriented, transferred back to bed with 2 staff assist. bp 109/58. Dennies sob, chest pain or dizziness. taking po fluids well
--- NOTE | 2022-08-31 19:55 | PC.NURSE ---
Assumed care pof pt. Pt sitting upright on hospital bed, family at bedside. Pt and family aware of plan of care to transfer to [facility] at 1500 tomorrow. Will medicate with pills in pudding for swallow safety. Call alejandra in reach. plan for lights off at 9:30 per pt request. WCTM.
[2022-08-31] MEDS: Mirtazapine 15 MG TABLET PO (20:33)
--- NOTE | 2022-08-31 20:41 | PC.NURSE ---
pt medicated per orders, bedding changed for comfort. Visualized dime-sized wound on lower back, redressed. VSS, WCTM.
--- NOTE | 2022-08-31 21:06 | PC.NURSE ---
Assisted pt to stand at bedside for urinal use. Will require a minimum of 1 assist and guidance to maintain stable posture for standing.
--- NOTE | 2022-08-31 21:22 | PC.NURSE ---
Family left for home, pt resting eyes closed on stretcher.
--- NOTE | 2022-08-31 23:38 | PC.NURSE ---
Pt exhibited mild confusion when wakin from slep, reoriented to environment, assisted with urinal with 2 assist, returned to bed, WCANTOINE
[2022-09-01 01:25] VITALS: BP 118/74; PULSE 67; RESP 18; TEMP 36.6; O2SAT 96
--- NOTE | 2022-09-01 01:41 | PC.NURSE ---
Pt intermittently sleeping and awake, pleasantly confused at times, redirectable with orientation to environment. Bed alarm remains on for safety, WCTM.
[2022-09-01] MEDS: HaloperidoL 5 MG TABLET PO (01:48)
--- NOTE | 2022-09-01 01:50 | PC.NURSE ---
Provider notified of pt frequent waking episodes. Administered ordered meds to promote sleep.
[2022-09-01] MEDS: Metoprolol Succinate ER 25 MG TAB.ER.24H PO (08:39)
[2022-09-01] MEDS: Tamsulosin HCL 0.4 MG CAPSULE PO (08:39)
[2022-09-01] MEDS: Aspirin Enteric Coated 81 MG TABLET.DR PO (08:39)
[2022-09-01] MEDS: Atorvastatin Calcium 10 MG TABLET PO (08:40)
[2022-09-01] MEDS: Carbidopa/Levodopa 25/100 TABLET 0.5 TAB PO ×2 (08:40→12:51)
--- NOTE | 2022-09-01 08:57 | MHC.CM.ED ---
Patient remains in ER. Patient will transfer to [facility] via BLS at 330pm. Patient, daughter Ariela Hart RN and Patricia LEON aware. Continue to monitor for d/c needs.
[2022-09-01] MEDS: Mupirocin 2 % Oint 22 GM TUBE 1 APPL TOPICAL (13:05)
--- NOTE | 2022-09-01 14:28 | PC.NURSE ---
tolerated medications with pudding, repositioned through out shift. will be going to SNF for short term rehab
[2022-09-01 14:37] VITALS: BP 94/63; PULSE 66; RESP 18; TEMP 37.4; O2SAT 96
== END 2022-09-01 16:28 | disposition skilled nursing facility (03) ==
PROVIDERS: Physician Assistant; Student in an Organized Health Care Education/Training Program; Emergency Provider Emergency Medicine; PCP Internal Medicine Medical Oncology
DX: R55 Syncope and collapse (principal); I49.8 Other specified cardiac arrhythmias; G20 Parkinson's disease; F02.80 Dementia in other diseases classified elsewhere, unspecified severity, without behavioral disturbance, psychotic disturbance, mood disturbance, and anxiety; R41.82 Altered mental status, unspecified; R26.81 Unsteadiness on feet; Z20.822 Contact with and (suspected) exposure to COVID-19; Z20.828 Contact with and (suspected) exposure to other viral communicable diseases; Z79.899 Other long term (current) drug therapy
CPT/HCPCS: 36415; 70450; 71045; 80053; 81003; 82947; 84484; 85025; 85610; 87635; 93005; 97116; 97163; 97530; 99285

== ENCOUNTER 2023-04-05 19:29 | Emergency (ER) | payer MEDICARE, SELFPAY ==
--- NOTE | ~2023-04-05 | CT_ITS ---
EXAMINATION: CT ABDOMEN AND PELVIS WITHOUT CONTRAST CLINICAL INFORMATION: Abdominal pain. COMPARISON: None available. TECHNIQUE: Multidetector volumetric imaging was performed from the superior aspect of the liver through the pubic symphysis. Sagittal and coronal reformatted images were obtained on the technologist's workstation. This CT examination was performed using dose optimization techniques as appropriate, variously including the following: *Automated exposure control *Adjustment of mA and/or kV according to patient size (this includes techniques or standardized protocols for targeted exams where dose is matched to indication/reason for exam; i.e. extremities or head) *Use of iterative reconstruction technique DLP: 2640 mGy-cm FINDINGS: Motion slightly limits evaluation. LUNG BASES: There is minimal increased markings/patchy infiltrative change at the right lung base. LIVER, GALLBLADDER, AND BILIARY TREE: The liver is normal in size, shape, and attenuation. No focal hepatic lesion or biliary ductal dilatation is present. There has been a prior cholecystectomy. PANCREAS: Unremarkable. SPLEEN: Unremarkable. ADRENAL GLANDS: Unremarkable. KIDNEYS AND URETERS: The kidneys are normal in size, shape, and attenuation. No hydronephrosis, hydroureter, or calculi seen. No perinephric stranding. There are multiple right renal cysts measuring up to 4.4 cm midpole right kidney. BLADDER: Unremarkable. GASTROINTESTINAL TRACT: A portion of the ascending colon and mid to distal small bowel extends into a large right inguinal hernia. There are diverticula of the descending and the sigmoid colon without diverticulitis. The appendix is not seen. There are surgical clips at the base of the cecum probably related to prior appendectomy. ABDOMINAL WALL: No significant hernia is appreciated. LYMPH NODES: Normal. VASCULAR: There is atherosclerotic plaque of the abdominal aorta with a 4.5 cm infrarenal abdominal aortic aneurysm. PELVIC VISCERA: There is prostate gland hypertrophy. OSSEOUS STRUCTURES: The bony structures are diffusely osteopenic/heterogeneous. There is diffuse thoracolumbar disc degenerative change. There is moderate bilateral hip degenerative change. CT/CT abdomen pelvis wo IV con IMPRESSION: Motion slightly limits evaluation. 1. Large right inguinal hernia containing a portion of the ascending colon and mid to distal small bowel. There is no bowel obstruction. 2. Diverticulosis of the descending and sigmoid colon without diverticulitis. 3. 4.5 cm infrarenal abdominal aortic aneurysm. 4. Prostate gland hypertrophy. 5. Minimal increased markings/patchy infiltrative change at the right lung base. Suspected to be chronic versus early or post infectious change. Fleischner guidelines were followed.
--- NOTE | ~2023-04-05 | XR_ITS ---
EXAMINATION: XR CHEST CLINICAL INFORMATION: Cough. COMPARISON: Chest x-ray August 30, 2022 TECHNIQUE: Frontal portable view of the chest was obtained. 2024 hours FINDINGS: Lungs are clear. No pulmonary vascular congestion. There is no pleural effusion. The heart size is normal. The cardiac and mediastinal contours are normal. There are calcifications of the thoracic aorta. There are multilevel degenerative changes of dorsal spine. XR/XR chest 1V IMPRESSION: Unremarkable examination.
--- NOTE | ~2023-04-05 | CT_ITS ---
EXAMINATION: CT HEAD WITHOUT CONTRAST CLINICAL INFORMATION: Seizure. COMPARISON: 08/30/2022. TECHNIQUE: Contiguous axial imaging was performed from the skull base to vertex without intravenous administration of contrast. This CT examination was performed using dose optimization techniques as appropriate, variously including the following: *Automated exposure control *Adjustment of mA and/or kV according to patient size (this includes techniques or standardized protocols for targeted exams where dose is matched to indication/reason for exam; i.e. extremities or head) *Use of iterative reconstruction technique DLP: 2640 mGy-cm FINDINGS: Motion slightly limits evaluation. There is cerebral volume loss with prominence of the lateral and the third ventricles. The cortical sulci are widened appropriately. The fourth ventricle and basal cisterns are normally outlined. There is an old right frontal infarct. There is mild bilateral periventricular and central white matter diminished attenuation. There is no acute territorial defect, hemorrhage or midline shift. The extra-axial spaces are unremarkable. Calvarium: Intact. Maxillofacial sinuses and mastoids: Clear as visualized. CT/CT head/brain wo IV con IMPRESSION: 1. No acute intracranial process seen. 2. Old right frontal infarct. 3. Mild cerebral volume loss with mild chronic small vessel ischemic changes.
[2023-04-05 19:47] VITALS: BP 153/78; BP 157/88; PULSE 85; PULSE 87; RESP 20; TEMP 37.5; O2SAT 97; O2SAT 98; BMI 25.6
--- NOTE | 2023-04-05 19:54 | ED_ITS ---
HPI - General Adult General Chief complaint: General Medical Stated complaint: tonic clonic seizure @630, temp of 101 and no appe History of Present Illness HPI narrative: Patient is a 77-year-old male with a history of Parkinson's. Previous history of CVA history of dementia and lives at home. No history of seizures in the past. This morning family noted an acute episode of jerking movement in both the upper and lower extremity. Patient was not responsive at that time. Subsequently patient was very lethargic. Family left him at home all day. This evening patient developed a fever up to 101 at home. Did not take any medication. He is vaccinated for COVID. Denies any coughing upper respiratory symptoms denies any pain on urination denies any rash denies any abdominal pain denies any nausea vomiting. Denies any diarrhea. Family did notice some decrease in appetite. Patient otherwise have no acute complaints at this time. Related Data Home Medications Medication Instructions Recorded Confirmed aspirin 81 mg tablet,delayed 81 mg PO DAILY 08/30/22 08/30/22 release atorvastatin 10 mg tablet 10 mg PO DAILY 08/30/22 08/30/22 carbidopa 25 mg-levodopa 100 mg 0.5 tab PO QID 08/30/22 08/30/22 tablet metoprolol succinate 25 mg 25 mg PO DAILY 08/30/22 08/30/22 tablet,extended release 24 hr mirtazapine 15 mg tablet 15 mg PO BEDTIME 08/30/22 08/30/22 mupirocin 2 % topical ointment 1 appl topical QD-BID 08/30/22 08/30/22 tamsulosin 0.4 mg capsule 0.4 mg PO DAILY 08/30/22 08/30/22 Previous Rx's Medication Instructions Recorded levetiracetam 500 mg tablet 500 mg PO BID #60 tabs 04/06/23 (Keppra) Allergies Allergy/AdvReac Type Severity Reaction Status Date / Time No Known Allergies Allergy Verified 04/05/23 19:47 Review of Systems 2 Review of Systems: Positive fever Positive jerking movement in arms and legs earlier this morning Yes all other systems are reviewed and are negative PMFSH Past Medical History Attestation statement: The following information was validated with the patient. Onset Date is defined in the Problem List Problems that require an onset date and time if occurred within 24 hrs of arrival to the ED Aortic Dissection and Rupture; Neurologic impairment; Cardiopulmonary Arrest; Endotracheal Intubation; Insertion or Replacement of Mechanical Circulatory Assist Device Social History Social History Alcohol intake: current Alcohol intake frequency: holidays/special occasions only Alcohol type: wine Advance Directives: Yes Advance Directives on File: Yes Advance Directives Date on File: 04/05/23 Physical Exam ED Vital Signs: Vital Signs - 24 hr 04/05/23 19:47 04/06/23 00:32 Temperature 99.5 F Pulse Rate 85 84 Respiratory Rate 20 19 Blood Pressure 157/88 H 158/88 H Pulse Oximetry 98 94 Oxygen Delivery Method Room Air Room Air BMI result Body Mass Index 25.6 Appearance: Alert. Oriented X3. No acute distress. Eyes: Pupils equal, round and reactive to light. ENT: Pharynx normal. Neck: Normal inspection. Neck supple. No lymph nodes noted. No crepitus CVS: Normal heart rate and rhythm. Pulses normal. Normal S1 and S2 Respiratory: No respiratory distress. Breath sounds normal. No Wheezing. No rales Abdomen: Soft and nontender. No rigidity. No distention. good BS x4 Skin: Skin warm and dry. Normal skin color. Normal skin turgor. Extremities: No lower extremity edema. Neurovascular intact to all extremities. No Lacerations. No Rash Neuro: Oriented X 3. No motor deficit. No sensory deficit. Moving all extermities. No slurred speech Medications Administered Discontinued Medications Generic Name Dose Route Start Last Admin Trade Name Freq PRN Reason Stop Dose Admin Acetaminophen 650 mg 04/05/23 19:57 04/05/23 20:53 Acetaminophen 325 Mg Tablet PO 04/05/23 19:58 Not Given ONCE ONE Levetiracetam 1,000 mg in 100 mls @ 400 mls/hr 04/05/23 19:52 04/05/23 21:02 Keppra IV 04/05/23 20:06 Infused ONCE ONE Infusion Lorazepam 1 mg 04/06/23 00:26 04/06/23 00:43 Lorazepam 2 Mg/Ml Vial IVPUSH 04/06/23 00:27 1 mg ONCE ONE Administration Medical Decision Making Medical Decision Making MDM Narrative: Patient had a likely seizures this morning. Was not evaluated right away. Had a previous history of CVA and history of Parkinson's. History of dementia. In this setting about patient had a high risk of having recurrence. A dose of Keppra was started. Will have patient continue with Keppra 500 mg twice a day. Some have patient follow-up with neurology on an outpatient basis. Patient had a fever this evening. COVID came back positive. Likely the cause of patient's fever. Patient's O2 sat is 98% on room air. Currently pending CT scan of the head CT scan of the abdomen pelvis. If they are negative will discharge patient home on seizure medications. Symptomatic support with Tylenol Motrin . [place] patient risk of Paxlovid to be high given the multitude of medication patient is on. In the setting of patient already vaccinated Differential Diagnosis Differential Diagnoses: The differential diagnosis associated with the presentation includes COVID flu RSV, seizure secondary to previous strokes, dementia Admission/Observation Consideration of admission/observation: Escalation of care including admission/observation considered Lab Data MDM Lab Attestation statement: I reviewed the patient's lab results. 04/05/23 20:44 04/05/23 20:44 Labs: Lab Results 04/05/23 Range/Units 20:44 WBC 7.3 (4.8-10.8) X10*3/uL RBC 4.49 L (4.60-5.80) X10*6/uL Hgb 14.4 (14.0-18.0) g/dl Hct 41.4 L (42.0-52.0) % MCV 92.2 (80.0-98.0) fL MCH 32.1 (27.0-33.0) pg MCHC 34.8 (31.0-36.0) g/dl RDW 12.4 (11.0-16.0) % Plt Count 154 L (160-400) X10*3/uL MPV 8.9 L (9.4-12.4) fL Immature Gran % (Auto) 0.4 (0.0-0.4) % Neut % (Auto) 87.1 H (45-73) % Lymph % (Auto) 2.9 L (20-40) % Shannon % (Auto) 9.2 (2-11) % Eos % (Auto) 0.1 (0-4) % Baso % (Auto) 0.3 (0-2) % Lymph # (Auto) 0.2 L (1.2-4.9) X10*3/uL Shannon # (Auto) 0.7 (0.1-1.2) X10*3/uL Eos # (Auto) 0.0 (0.0-0.4) X10*3/uL Baso # (Auto) 0.0 (0.0-0.2) X10*3/uL Abs Immat Gran (auto) 0.03 (0.00-0.03) X10*3/uL Absolute Neuts (auto) 6.3 (2.0-8.3) x10*3/uL Absolute Nucleated RBC 0.000 (0.0-0.012) X10*3/uL Nucleated RBC % (auto) 0.0 (0.0-0.2) /100WBC Sodium 140 (135-145) mmol/L Potassium 4.7 (3.3-5.1) mmol/L Chloride 103 (96-108) mmol/L Carbon Dioxide 26 (22-29) mmol/L Anion Gap 16 (12-20) BUN 16 (9-16) mg/dL Creatinine 0.88 (0.5-1.4) mg/dL Estim Creat Clear Calc 78.3 Estimated GFR > 60 Random Glucose 135 H (60-115) mg/dL Lactic Acid 1.2 (0.5-2.0) mmol/L Calcium 9.5 (8.4-10.2) mg/dL Influenza Type A (PCR) NEGATIVE (Negative) Influenza Type B (PCR) NEGATIVE (Negative) RSV RNA Qual (PCR) NEGATIVE (Negative) SARS-CoV-2 RNA (RT-PCR) POSITIVE A (Negative) Discharge Plan Discharge Clinical Impression: Seizure, COVID Patient Disposition: Home, Self-Care Instructions: Recurrent Seizures in Adults (ED), COVID-19 (Coronavirus Disease 2019) (ED) Prescriptions: New levetiracetam [Keppra] 500 mg tablet 500 mg PO BID Qty: 60 0RF No Action atorvastatin 10 mg tablet 10 mg PO DAILY tamsulosin 0.4 mg capsule 0.4 mg PO DAILY mupirocin 2 % ointment 1 appl topical QD-BID mirtazapine 15 mg tablet 15 mg PO BEDTIME metoprolol succinate 25 mg tablet extended release 24 hr 25 mg PO DAILY carbidopa-levodopa 25-100 mg tablet 0.5 tab PO QID aspirin 81 mg Tablet,Delayed Release (Dr/Ec) 81 mg PO DAILY Referrals: Physician,Unknown J [Primary Care Provider] - 04/08/23
[2023-04-05] MEDS: levETIRAcetam in NaCl (iso-os) 1,000 MG/100 ML PIGGYBACK 400 MG IV (20:47)
[2023-04-05 20:59] LABS: MANUAL DIFF FLAG NO
[2023-04-05 21:00] LABS: Basophils Percent Auto 0.3 % (0-2); Eosinophils Percent Auto 0.1 % (0-4); Hematocrit 41.4 % (42.0-52.0); Hemoglobin 14.4 g/dl (14.0-18.0); Imm Gran Abs Auto 0.03 X10*3/uL (0.00-0.03); Imm Gran Pct Auto 0.4 % (0.0-0.4); Lymphocytes Absolute Auto 0.2 X10*3/uL (1.2-4.9); Lymphocytes Percent Auto 2.9 % (20-40); Mean Corpuscular HGB Conc 34.8 g/dl (31.0-36.0); Mean Corpuscular Hemoglobin 32.1 pg (27.0-33.0); Mean Corpuscular Volume 92.2 fL (80.0-98.0); Mean Platelet Volume 8.9 fL (9.4-12.4); Monocytes Absolute Auto 0.7 X10*3/uL (0.1-1.2); Monocytes Percent Auto 9.2 % (2-11); Neutrophils Absolute Auto 6.3 x10*3/uL (2.0-8.3); Neutrophils Percent Auto 87.1 % (45-73); Platelet Count 154 X10*3/uL (160-400); Red Blood Count 4.49 X10*6/uL (4.60-5.80); Red Cell Distribution Width 12.4 % (11.0-16.0); White Blood Count 7.3 X10*3/uL (4.8-10.8)
[2023-04-05 21:12] LABS: Lactic Acid 1.2 mmol/L (0.5-2.0)
[2023-04-05 21:15] LABS: Anion Gap 16 (12-20); Blood Urea Nitrogen 16 mg/dL (9-16); Calcium 9.5 mg/dL (8.4-10.2); Carbon Dioxide 26 mmol/L (22-29); Chloride 103 mmol/L (96-108); Creatinine Clr Calc Pharmacy 78.3; Estimated Glomerular Filt Rate > 60; Glucose Random 135 mg/dL (60-115); Potassium 4.7 mmol/L (3.3-5.1); Sodium 140 mmol/L (135-145)
[2023-04-05 21:40] LABS: Influenza A PCR NEGATIVE (Negative); Influenza B PCR NEGATIVE (Negative); Resp Syncy Virus RNA Qual PCR NEGATIVE (Negative); SARS COV2 PCR INHOUSE POSITIVE (Negative)
[2023-04-06 00:32] VITALS: BP 158/88; PULSE 84; RESP 19; O2SAT 94
--- NOTE | 2023-04-06 00:39 | PC.NURSE ---
Update given pts son Keith. Can be reached at [phone]. Also requests no visitors except caregiver, Trang, pts Raya, and himself.
[2023-04-06] MEDS: LORazepam 2 MG/ML VIAL 1 MG IVPUSH (00:43)
--- NOTE | 2023-04-06 00:50 | PC.NURSE ---
Pt to CT at this time.
--- NOTE | 2023-04-06 02:14 | ED_ITS ---
HPI - General Adult General Chief complaint: General Medical Stated complaint: tonic clonic seizure @630, temp of 101 and no appe Related Data Home Medications Medication Instructions Recorded Confirmed aspirin 81 mg tablet,delayed 81 mg PO DAILY 08/30/22 08/30/22 release atorvastatin 10 mg tablet 10 mg PO DAILY 08/30/22 08/30/22 carbidopa 25 mg-levodopa 100 mg 0.5 tab PO QID 08/30/22 08/30/22 tablet metoprolol succinate 25 mg 25 mg PO DAILY 08/30/22 08/30/22 tablet,extended release 24 hr mirtazapine 15 mg tablet 15 mg PO BEDTIME 08/30/22 08/30/22 mupirocin 2 % topical ointment 1 appl topical QD-BID 08/30/22 08/30/22 tamsulosin 0.4 mg capsule 0.4 mg PO DAILY 08/30/22 08/30/22 Previous Rx's Medication Instructions Recorded levetiracetam 500 mg tablet 500 mg PO BID #60 tabs 04/06/23 (Keppra) Allergies Allergy/AdvReac Type Severity Reaction Status Date / Time No Known Allergies Allergy Verified 04/05/23 19:47 [facility] Social History Social History Alcohol intake: current Alcohol intake frequency: holidays/special occasions only Alcohol type: wine Advance Directives: Yes Advance Directives on File: Yes Advance Directives Date on File: 04/05/23 Physical Exam ED Vital Signs: Vital Signs - 24 hr 04/05/23 19:47 04/06/23 00:32 Temperature 99.5 F Pulse Rate 85 84 Respiratory Rate 20 19 Blood Pressure 157/88 H 158/88 H Pulse Oximetry 98 94 Oxygen Delivery Method Room Air Room Air BMI result Body Mass Index 25.6 Medications Administered Discontinued Medications Generic Name Dose Route Start Last Admin Trade Name Freq PRN Reason Stop Dose Admin Acetaminophen 650 mg 04/05/23 19:57 04/05/23 20:53 Acetaminophen 325 Mg Tablet PO 04/05/23 19:58 Not Given ONCE ONE Levetiracetam 1,000 mg in 100 mls @ 400 mls/hr 04/05/23 19:52 04/05/23 21:02 Keppra IV 01/02/24 20:06 Infused ONCE ONE Infusion Lorazepam 1 mg 04/06/23 00:26 04/06/23 00:43 Lorazepam 2 Mg/Ml Vial IVPUSH 04/06/23 00:27 1 mg ONCE ONE Administration Medical Decision Making Medical Decision Making [facility] Narrative: Patient's CT scan of the head was grossly negative for any acute evidence of bleeding. The review radiology's reading of the CT scan. Lab Data 04/05/23 20:44 04/05/23 20:44 Labs: Lab Results 04/05/23 Range/Units 20:44 WBC 7.3 (4.8-10.8) X10*3/uL RBC 4.49 L (4.60-5.80) X10*6/uL Hgb 14.4 (14.0-18.0) g/dl Hct 41.4 L (42.0-52.0) % MCV 92.2 (80.0-98.0) fL MCH 32.1 (27.0-33.0) pg MCHC 34.8 (31.0-36.0) g/dl RDW 12.4 (11.0-16.0) % Plt Count 154 L (160-400) X10*3/uL MPV 8.9 L (9.4-12.4) fL Immature Gran % (Auto) 0.4 (0.0-0.4) % Neut % (Auto) 87.1 H (45-73) % Lymph % (Auto) 2.9 L (20-40) % [place] % (Auto) 9.2 (2-11) % Eos % (Auto) 0.1 (0-4) % Baso % (Auto) 0.3 (0-2) % Lymph # (Auto) 0.2 L (1.2-4.9) X10*3/uL [place] # (Auto) 0.7 (0.1-1.2) X10*3/uL Eos # (Auto) 0.0 (0.0-0.4) X10*3/uL Baso # (Auto) 0.0 (0.0-0.2) X10*3/uL Abs Immat Gran (auto) 0.03 (0.00-0.03) X10*3/uL Absolute Neuts (auto) 6.3 (2.0-8.3) x10*3/uL Absolute Nucleated RBC 0.000 (0.0-0.012) X10*3/uL Nucleated RBC % (auto) 0.0 (0.0-0.2) /100WBC Sodium 140 (135-145) mmol/L Potassium 4.7 (3.3-5.1) mmol/L Chloride 103 (96-108) mmol/L Carbon Dioxide 26 (22-29) mmol/L Anion Gap 16 (12-20) BUN 16 (9-16) mg/dL Creatinine 0.88 (0.5-1.4) mg/dL Estim Creat Clear Calc 78.3 Estimated GFR > 60 Random Glucose 135 H (60-115) mg/dL Lactic Acid 1.2 (0.5-2.0) mmol/L Calcium 9.5 (8.4-10.2) mg/dL Influenza Type A (PCR) NEGATIVE (Negative) Influenza Type B (PCR) NEGATIVE (Negative) RSV RNA Qual (PCR) NEGATIVE (Negative) SARS-CoV-2 RNA (RT-PCR) POSITIVE A (Negative) Discharge Plan Discharge Clinical Impression: Seizure, COVID Patient Disposition: Home, Self-Care Instructions: Epilepsy in Older Adults (ED), COVID-19 (Coronavirus Disease 2019) (ED) Prescriptions: New levetiracetam [Keppra] 500 mg tablet 500 mg PO BID Qty: 60 0RF No Action atorvastatin 10 mg tablet 10 mg PO DAILY tamsulosin 0.4 mg capsule 0.4 mg PO DAILY mupirocin 2 % ointment 1 appl topical QD-BID mirtazapine 15 mg tablet 15 mg PO BEDTIME metoprolol succinate 25 mg tablet extended release 24 hr 25 mg PO DAILY carbidopa-levodopa 25-100 mg tablet 0.5 tab PO QID aspirin 81 mg Tablet,Delayed Release (Dr/Ec) 81 mg PO DAILY Referrals: Tacho Melton MD [Physician] - 04/08/23 Physician,Miki J [Primary Care Provider] - 04/08/23
[2023-04-06 03:51] LABS: Appearance Urine Clear; Color Urine Yellow; Glucose Urine UA 100 mg/dL (Negative); Leukocyte Esterase Urine Negative (Negative); Nitrite Urine Negative (Negative); Specific Gravity - Urine 1.025 (1.005-1.025); Urine Blood Negative (Negative); Urine Ketones Trace mg/dL (Negative); Urine Protein Trace mg/dL (Neg-Trace)
[2023-04-06 03:56] LABS: Bacteria Urine None Seen (None Seen); Hyaline Casts Urine 0-2 /LPF (0-2); Squamous Epithelial Cell Urine 0-2 /HPF (0-2); WBC Urine 0-5 /HPF (0-5)
--- NOTE | 2023-04-06 04:02 | MHC.EDTECH ---
call out to [facility] @[id number] spoke to latia who gave an ETA of [phone]
--- NOTE | 2023-04-06 05:12 | PC.NURSE ---
Update given to pts son Keith
[2023-04-06 05:15] VITALS: BP 160/83; PULSE 85; RESP 20; O2SAT 98
== END 2023-04-06 05:27 | disposition home or self-care (01) ==
PROVIDERS: Emergency Provider Emergency Medicine Emergency Medical Services
DX: U07.1 COVID-19 (principal); G40.409 Other generalized epilepsy and epileptic syndromes, not intractable, without status epilepticus; R50.9 Fever, unspecified; E78.2 Mixed hyperlipidemia; G20.A1 Parkinson's disease without dyskinesia, without mention of fluctuations; F02.80 Dementia in other diseases classified elsewhere, unspecified severity, without behavioral disturbance, psychotic disturbance, mood disturbance, and anxiety; Z79.02 Long term (current) use of antithrombotics/antiplatelets; Z79.82 Long term (current) use of aspirin; Z79.899 Other long term (current) drug therapy
CPT/HCPCS: 0241U; 70450; 71045; 74176; 80048; 81001; 83605; 85025; 87040; 96374; 96375; 99284; J1953; J2060

== ENCOUNTER 2023-04-06 18:03 | Inpatient (IN) | payer MEDICARE, SELFPAY ==
[2023-04-06 18:46] VITALS: BP 135/81; BP 140/90; PULSE 86; PULSE 87; RESP 16; TEMP 37.6; O2SAT 94; BMI 25.5
--- NOTE | 2023-04-06 19:10 | PC.NURSE ---
pt comes from home accompanied by national van owner operator after pt was difficult to arouse after being diagnosed with covid here yesterday.
--- NOTE | 2023-04-06 19:28 | ED.AMS ---
HPI - Altered Mental Status General Chief Complaint: Altered Mental Status Stated Complaint: +COVID,WEAKNESS FROM HOME PER EMS Time Seen by Provider: 04/06/23 18:46 History of Present Illness HPI narrative: Patient was seen yesterday. Had a seizure since yesterday morning. In the afternoon the patient developed a fever. A CT scan of the head was done yesterday which was grossly negative for any acute evidence of bleeding. Patient has a history of dementia history of Parkinson's history of previous stroke. Was started on Keppra yesterday. And dose of IV Keppra was given. Patient also has some coughing fever so a COVID RSV flu test was done yesterday. It came back positive for COVID. Patient's O2 sat was normal yesterday. Today the patient did not have any additional seizures but did have a fever at home that was subjective. Family unable to take care patient sent the patient back to the emergency department for further evaluation the patient was unable to tolerate any fluids today. Very weak tired. Related Data Home Medications Medication Instructions Recorded Confirmed aspirin 81 mg tablet,delayed 81 mg PO DAILY 08/30/22 08/30/22 release atorvastatin 10 mg tablet 10 mg PO DAILY 08/30/22 08/30/22 carbidopa 25 mg-levodopa 100 mg 0.5 tab PO QID 08/30/22 08/30/22 tablet metoprolol succinate 25 mg 25 mg PO DAILY 08/30/22 08/30/22 tablet,extended release 24 hr mirtazapine 15 mg tablet 15 mg PO BEDTIME 08/30/22 08/30/22 mupirocin 2 % topical ointment 1 appl topical QD-BID 08/30/22 08/30/22 tamsulosin 0.4 mg capsule 0.4 mg PO DAILY 08/30/22 08/30/22 Previous Rx's Medication Instructions Recorded levetiracetam 500 mg tablet 500 mg PO BID #60 tabs 04/06/23 (Keppra) Allergies Allergy/AdvReac Type Severity Reaction Status Date / Time No Known Allergies Allergy Verified 04/05/23 19:47 Review of Systems Review of Systems: Positive fever positive generalized malaise Yes all other systems are reviewed and are negative PMFSH Past Medical History Attestation statement: The following information was validated with the patient. Onset Date is defined in the Problem List Problems that require an onset date and time if occurred within 24 hrs of arrival to the ED Aortic Dissection and Rupture; Neurologic impairment; Cardiopulmonary Arrest; Endotracheal Intubation; Insertion or Replacement of Mechanical Circulatory Assist Device Medical History Mixed hyperlipidemia BPH (benign prostatic hyperplasia) Dementia Seizure Parkinson's disease Social History Social History Alcohol intake: current Alcohol intake frequency: does not drink Alcohol type: wine Smoked in Last 30 Days: No Use of substances other than those prescribed or required for medical reasons: No Advance Directives: Yes Advance Directives on File: No Advance Directives Date on File: 04/05/23 Physical Exam ED Vital Signs: Vital Signs - 24 hr 04/06/23 18:46 04/06/23 19:38 Temperature 99.6 F 98.4 F Pulse Rate 87 86 Respiratory Rate 16 17 Blood Pressure 135/81 148/80 H Pulse Oximetry 94 90 L Oxygen Delivery Method Room Air Room Air BMI result Body Mass Index 25.5 Appearance: Arousable lethargic, no acute distress Eyes: Pupils equal, round and reactive to light. ENT: Pharynx normal. Neck: Normal inspection. Neck supple. No lymph nodes noted. No crepitus CVS: Normal heart rate and rhythm. Pulses normal. Normal S1 and S2 Respiratory: No respiratory distress. Breath sounds normal. No Wheezing. No rales Abdomen: Soft and nontender. No rigidity. No distention. good BS x4 Skin: Skin warm and dry. Normal skin color. Normal skin turgor. Extremities: No lower extremity edema. Neurovascular intact to all extremities. No Lacerations. No Rash Neuro: Oriented to self No motor deficit. No sensory deficit. Moving all extremities Medications Administered Discontinued Medications Generic Name Dose Route Start Last Admin Trade Name Freq PRN Reason Stop Dose Admin Sodium Chloride 1,000 mls @ 999 mls/hr 04/06/23 19:00 04/06/23 19:32 Ns IV 04/06/23 20:00 999 mls/hr .Q1H1M VICTOR M Administration Medical Decision Making Medical Decision Making MDM Narrative: Positive generalized malaise weakness. Diagnosed with COVID yesterday. Already had a CT scan of the head yesterday. On Keppra 500 twice a day. Today too weak unable to tolerate fluid generalized malaise. Will recheck patient's electrolytes. Patient's O2 sat maintained at approximately 90%. Positive generalized malaise weakness. Tested positive for COVID yesterday. Appear dehydrated. Labs returned consistent with mild dehydration. IV fluids given. Will admit for further evaluation. At dose of steroid was given. A chest x-ray was ordered. Currently in stable condition. Case consulted by the hospitalist team. Differential Diagnosis Differential Diagnoses: The differential diagnosis associated with the presentation includes Admission/Observation Consideration of admission/observation: Escalation of care including admission/observation considered Will admit for further evaluation Consult Healthcare Provider Management of the patient was discussed with: Hospitalist Lab Data MDM Lab Attestation statement: I reviewed the patient's lab results. 04/06/23 19:31 04/06/23 19:31 Labs: Lab Results 04/06/23 Range/Units 19:31 WBC 6.0 (4.8-10.8) X10*3/uL RBC 4.45 L (4.60-5.80) X10*6/uL Hgb 14.2 (14.0-18.0) g/dl Hct 40.8 L (42.0-52.0) % MCV 91.7 (80.0-98.0) fL MCH 31.9 (27.0-33.0) pg MCHC 34.8 (31.0-36.0) g/dl RDW 12.4 (11.0-16.0) % Plt Count 148 L (160-400) X10*3/uL MPV 8.8 L (9.4-12.4) fL Immature Gran % (Auto) 0.3 (0.0-0.4) % Neut % (Auto) 79.5 H (45-73) % Lymph % (Auto) 5.7 L (20-40) % [place] % (Auto) 14.2 H (2-11) % Eos % (Auto) 0.0 (0-4) % Baso % (Auto) 0.3 (0-2) % Lymph # (Auto) 0.3 L (1.2-4.9) X10*3/uL [place] # (Auto) 0.9 (0.1-1.2) X10*3/uL Eos # (Auto) 0.0 (0.0-0.4) X10*3/uL Baso # (Auto) 0.0 (0.0-0.2) X10*3/uL Abs Immat Gran (auto) 0.02 (0.00-0.03) X10*3/uL Absolute Neuts (auto) 4.8 (2.0-8.3) x10*3/uL Absolute Nucleated RBC 0.000 (0.0-0.012) X10*3/uL Nucleated RBC % (auto) 0.0 (0.0-0.2) /100WBC Sodium 138 (135-145) mmol/L Potassium 4.3 (3.3-5.1) mmol/L Chloride 103 (96-108) mmol/L Carbon Dioxide 25 (22-29) mmol/L Anion Gap 14 (12-20) BUN 16 (9-16) mg/dL Creatinine 0.91 (0.5-1.4) mg/dL Estim Creat Clear Calc 75.7 Estimated GFR > 60 Random Glucose 121 H (60-115) mg/dL Calcium 9.1 (8.4-10.2) mg/dL Total Bilirubin 0.3 (0.0-1.0) mg/dL Direct Bilirubin 0.1 (0.0-0.5) mg/dL AST 25 (5-37) U/L ALT 29 (0-40) U/L Alkaline Phosphatase 93 (39-117) U/L Total Protein 7.1 (6.5-8.0) g/dL Albumin 4.0 (3.5-5.0) g/dL Independent Interpretation I performed an independent interpretation of an: Plain X-Ray Independent Historian Family External Record Review External record reviewed: Inpatient record Chronic Conditions Parkinson's dementia Social Determinants Patient?s care significantly limited by Social Determinants of Health including: Problems related to primary support group Discharge Plan Discharge Clinical Impression: COVID Patient Disposition: Admitted As Inpatient Prescriptions: No Action atorvastatin 10 mg tablet 10 mg PO DAILY tamsulosin 0.4 mg capsule 0.4 mg PO DAILY mupirocin 2 % ointment 1 appl topical QD-BID mirtazapine 15 mg tablet 15 mg PO BEDTIME metoprolol succinate 25 mg tablet extended release 24 hr 25 mg PO DAILY carbidopa-levodopa 25-100 mg tablet 0.5 tab PO QID aspirin 81 mg Tablet,Delayed Release (Dr/Ec) 81 mg PO DAILY levetiracetam [Keppra] 500 mg tablet 500 mg PO BID Qty: 60 0RF
[2023-04-06 19:38] VITALS: BP 148/80; PULSE 86; RESP 17; TEMP 36.9; O2SAT 90
[2023-04-06 19:53] LABS: Alanine Aminotransferase 29 U/L (0-40); Alkaline Phosphatase 93 U/L (39-117); Anion Gap 14 (12-20); Aspartate Amino Transferase 25 U/L (5-37); Bilirubin Direct 0.1 mg/dL (0.0-0.5); Bilirubin Total 0.3 mg/dL (0.0-1.0); Blood Urea Nitrogen 16 mg/dL (9-16); Calcium 9.1 mg/dL (8.4-10.2); Carbon Dioxide 25 mmol/L (22-29); Chloride 103 mmol/L (96-108); Creatinine Clr Calc Pharmacy 75.7; Estimated Glomerular Filt Rate > 60; Glucose Random 121 mg/dL (60-115); Potassium 4.3 mmol/L (3.3-5.1); Sodium 138 mmol/L (135-145); Total Protein 7.1 g/dL (6.5-8.0)
[2023-04-06 20:15] VITALS: BP 137/68; PULSE 66; RESP 16; TEMP 36.7; O2SAT 96
--- NOTE | 2023-04-06 20:16 | PM.IMHP ---
History of Present Illness Date of Service: 04/06/23 Chief Complaint: Generalized weakness, cough This is a 77-year-old male with pertinent history of seizure disorder, Parkinson's disease with dementia, mixed hyperlipidemia, mood disorder, BPH who was brought to the emergency department for evaluation of generalized weakness and cough. Patient initially presented to the ER on 04/05 after a possible seizure episode. He was loaded with Keppra and discharged on p.o. Keppra. Patient also tested positive for COVID-19 on 04/05/2023. Patient was brought to the ER again today for evaluation of generalized weakness, poor p.o. intake and cough. Unable to obtain history from the patient due to dementia. History obtained from rn managed care at bedside. Also patient reportedly had a subjective fever on the day of presentation. Unable to obtain review of systems. In the emergency department, patient was found to be hypoxemic and placed on supplemental oxygen. Review of Systems Review of Systems: Yes Unobtainable due to mental condition and Unobtainable due to mental status PMFSH Medical History Mixed hyperlipidemia BPH (benign prostatic hyperplasia) Dementia Seizure Parkinson's disease Pertinent family history: Unable to obtain Social History Alcohol intake: current Alcohol intake frequency: does not drink Alcohol type: wine Smoked in Last 30 Days: No Use of substances other than those prescribed or required for medical reasons: No Advance Directives: Yes Advance Directives on File: No Advance Directives Date on File: 04/05/23 Meds Allergies Allergy/AdvReac Type Severity Reaction Status Date / Time No Known Allergies Allergy Verified 04/05/23 19:47 Active Medications: Current Medications Dexamethasone Sodium Phosphate (Dexamethasone Sod Phosphate 4 Mg/Ml Vial) 6 mg IVPUSH DAILY [facility] Home Medications Medication Instructions Recorded Confirmed Last Taken Type aspirin 81 mg tablet,delayed 81 mg PO DAILY 08/30/22 08/30/22 Unknown History release atorvastatin 10 mg tablet 10 mg PO DAILY 08/30/22 08/30/22 Unknown History carbidopa 25 mg-levodopa 100 mg 0.5 tab PO QID 08/30/22 08/30/22 Unknown History tablet metoprolol succinate 25 mg 25 mg PO DAILY 08/30/22 08/30/22 1 Day Ago History tablet,extended release 24 hr ~08/29/22 mirtazapine 15 mg tablet 15 mg PO BEDTIME 08/30/22 08/30/22 08/29/22 History mupirocin 2 % topical ointment 1 appl topical QD-BID 08/30/22 08/30/22 1 Day Ago History ~08/29/22 tamsulosin 0.4 mg capsule 0.4 mg PO DAILY 08/30/22 08/30/22 1 Day Ago History ~08/29/22 Physical Exam Vital Signs and Narrative: Vital Signs: Last Vital Signs Temp 98.4 F 04/06/23 19:38 Pulse 86 04/06/23 19:38 Resp 17 04/06/23 19:38 BP 148/80 H 04/06/23 19:38 Pulse Ox 90 L 04/06/23 19:38 O2 Del Method Room Air 04/06/23 19:38 BMI result Body Mass Index 25.5 Elderly male lying in bed on supplemental oxygen Neck supple, no JVD Regular rate and rhythm, S1-S2 heard Decreased breath sounds at bases with crackles Abdomen soft nontender, no guarding, no rigidity Patient is awake, alert and oriented to self, disoriented to place, time and person ; not following commands, not responding appropriately to questions, unable to have a conversation Psych: Normal mood No pedal edema Results Labs 04/06/23 19:31 04/06/23 19:31 Labs: Laboratory Results - last 24 hr 04/06/23 19:31 MCV 91.7 MCH 31.9 MCHC 34.8 RDW 12.4 Plt Count 148 L MPV 8.8 L Immature Gran % (Auto) 0.3 Neut % (Auto) 79.5 H Lymph % (Auto) 5.7 L [place] % (Auto) 14.2 H Eos % (Auto) 0.0 Baso % (Auto) 0.3 Lymph # (Auto) 0.3 L [place] # (Auto) 0.9 Eos # (Auto) 0.0 Baso # (Auto) 0.0 Abs Immat Gran (auto) 0.02 Absolute Neuts (auto) 4.8 Absolute Nucleated RBC 0.000 Nucleated RBC % (auto) 0.0 Anion Gap 14 Estim Creat Clear Calc 75.7 Estimated GFR > 60 Random Glucose 121 H Calcium 9.1 Total Bilirubin 0.3 Direct Bilirubin 0.1 AST 25 ALT 29 Alkaline Phosphatase 93 Total Protein 7.1 Albumin 4.0 Assessment and Plan (1) COVID: Status: Acute (2) Hypoxia: Status: Acute Plan This is a 77-year-old male with pertinent history of seizure disorder, Parkinson's disease with dementia, mixed hyperlipidemia, mood disorder, BPH who was brought to the emergency department for evaluation of generalized weakness and cough. #. Acute hypoxemic respiratory failure secondary to COVID-19 pneumonia: Will admit patient with supplemental oxygen. Continue isolation precautions. Initiating Decadron 6 mg daily. #. Generalized weakness in the setting of above: Consulting Physical therapy to evaluate and treat #. Parkinson's disease: On carbidopa levodopa #. Dementia: Maintain sleep-wake cycle #. Seizure disorder: On Keppra #. BPH: On Flomax #. Mixed hyperlipidemia: On atorvastatin #. Mood disorder: On Remeron at bedtime Med rec pending DVT prophylaxis: Lovenox Full code. Discussed with daughter on the phone Admit as inpatient and will require two night minimum hospital stay for supplemental oxygen (as above), which is not possible in a lesser acute setting. Quality Stroke Does the patient have a stroke diagnosis?: No VTE Prior VTE?: No VTE Risk Level:: Medical - moderate - high VTE Device Contraindication: Treatment Not Indicated VTE Drug Contraindication: N/A - Med Ordered
--- NOTE | 2023-04-06 22:09 | PHA.MEDREC ---
Pharmacy Consult ? Medication Reconciliation Pharmacy has completed the medication reconciliation. Patient's scooping machine tender confirmed meds.
--- NOTE | 2023-04-06 23:55 | PC.NURSE ---
Took over care 23:50, pt transferred into hospital bed, family at the bedside.
--- NOTE | 2023-04-07 | EEG_ITS ---
This is a 16 channel EEG with an EKG lead. The patient is reported confused and drowsy during the tracing. Background EEG rhythm is 7 to 8 hertz, 5 to 20 microvolt posteriorly, lower amplitude fast anteriorly. Photic stimulation is not performed. Hyperventilation is not performed. Cardiac lead does not reveal any significant abnormality. No sharp wave spikes or paroxysmal tendency noted. IMPRESSION: Generalized slowing with no evidence of seizure disorder. MD ANDREW Gould/JESSICA / [id number]
--- NOTE | 2023-04-07 01:22 | PC.NURSE ---
pt incontinent of urine, complete bed change, [place] cath placed, respiratory care technician at the bedside,
--- NOTE | 2023-04-07 03:44 | PC.NURSE ---
per Dr. Ybarra pt is to be NPO, no fluids at this time, will re-evaluate in the morning.
--- NOTE | 2023-04-07 06:38 | PC.NURSE ---
ua collected and sent, [facility] cath applied, pt reposition and bed changed.
[2023-04-07 07:20] VITALS: BP 137/68; PULSE 66; O2SAT 96
[2023-04-07 08:00] VITALS: BP 148/79; PULSE 82; RESP 17; TEMP 36.8; O2SAT 96
[2023-04-07 08:54] LABS: Anion Gap 16 (12-20); Blood Urea Nitrogen 15 mg/dL (9-16); Calcium 8.8 mg/dL (8.4-10.2); Carbon Dioxide 23 mmol/L (22-29); Chloride 105 mmol/L (96-108); Creatinine Clr Calc Pharmacy 93.2; Estimated Glomerular Filt Rate > 60; Glucose Random 95 mg/dL (60-115); Potassium 4.2 mmol/L (3.3-5.1); Sodium 140 mmol/L (135-145)
--- NOTE | 2023-04-07 09:13 | MHC.CM.PN ---
Patient is Covid positive and has a diagnosis of Dementia; CM spoke with /HCP/Raya @ [phone]. Patient's correct address is [address] [place] [address] [address] in [facility], [id number]. Patient lives in a house with his and he has 24/7 privately paid counselor dormitory and he is active with [employer]. Home/resume said services is the goal and CM has initiated and will follow for dc planning. PCP is Dr. Allen Jean.Son/Keith is the Alternate HCP.PT is recommending STR VS Home with 24/7 care, which Patient has.CM will follow.
--- NOTE | 2023-04-07 10:21 | PC.NURSE ---
Per swallow eval by ST pt cleared for ground diet with thin liquids. pt given meds either whole or crushed in applesauce, able to swallow without difficulty, pt in full upright position.
--- NOTE | 2023-04-07 10:45 | MHC.CM.PN ---
CM received a message from CM Outreach Coordinator;a voice mail was left by Patient's /HCP that only contacts are her and her Son (both are HCPs). does not want Patient's Daughter visiting nor receiving any information regarding the Patient. BOB relayed this message to RN/Argenis.
--- NOTE | 2023-04-07 11:23 | PC.NURSE ---
Incontinent care provided. pt too drowsy to take PO phenytoin at this time.
--- NOTE | 2023-04-07 11:59 | PM.NEUROCN ---
History of Present Illness Data of Consult Service Date: 04/07/23 Primary Care Provider: Unknown Physician HPI Reason for consult: Encephalopathy 77 years old man with chronic anxiety disorder started having problems with mentation or cognition and walking about a year or 2 years ago. His son reported that there was confusion about if he had Parkinson's or not but ultimately he was diagnosed with Parkinson's. He has been taking carbidopa levodopa but despite that he was not able to ambulate and mostly bedridden. It was also reported that he suffered from behavioral symptomatology such as hallucinations. He was at home cared 24 hours a day by caretakers as he needed help with all activities of daily living. Few days ago he was brought to hospital with change in mental status involving generalize he convulsion type of symptom and was tentatively diagnosed with seizure disorder. He was discharged back to home and then came back with worsening mental status. No further seizure-like episode was noted. He was unable to provide any history. Review of Systems Review of Systems: Could not be done with [facility] Past Medical History Medical History Mixed hyperlipidemia BPH (benign prostatic hyperplasia) Dementia Seizure Parkinson's disease Social History Social History Alcohol intake: current Alcohol intake frequency: does not drink Alcohol type: wine Patient Tobacco Use Status: Never used Tobacco Smoked in Last 30 Days: No Use of substances other than those prescribed or required for medical reasons: No Advance Directives: Yes Advance Directives on File: No Advance Directives Date on File: 04/05/23 Nutrition Risks: No Nutritional Risk service: Yes Meds Allergies Allergy/AdvReac Type Severity Reaction Status Date / Time No Known Allergies Allergy Verified 04/05/23 19:47 Active Medications: Current Medications Acetaminophen (Acetaminophen 325 Mg Tablet) 650 mg PO Q6H PRN PRN Reason: Pain, Mild (Pain Scale 1-3) Aspirin (Aspirin Enteric Coated 81 Mg Tablet.) 81 mg PO DAILY [facility] Last Admin: 04/07/23 10:02 Dose: 81 mg Atorvastatin Calcium (Atorvastatin Calcium 10 Mg Tablet) 10 mg PO DAILY [facility] Last Admin: 04/07/23 10:00 Dose: 10 mg Carbidopa/Levodopa (Carbidopa/Levodopa 25/100 Tablet) 1 tab PO 5XD [facility] Last Admin: 04/07/23 10:00 Dose: 1 tab Dexamethasone Sodium Phosphate (Dexamethasone Sod Phosphate 4 Mg/Ml Vial) 6 mg IVPUSH DAILY [facility] Last Admin: 04/07/23 10:05 Dose: 6 mg Enoxaparin Sodium (Enoxaparin Sodium 40 Mg/0.4 Ml Syringe) 40 mg SUBCUT Q24H [facility] Last Admin: 04/06/23 21:51 Dose: 40 mg Remdesivir 200 mg/ Sodium (Chloride) 210 mls @ 105 mls/hr IV ONCE ONE Stop: 04/07/23 12:59 Last Admin: 04/07/23 11:55 Dose: 105 mls/hr Remdesivir 100 mg/ Sodium (Chloride) 230 mls @ 115 mls/hr IV Q24H [facility] Stop: 04/11/23 12:59 Melatonin (Melatonin 3 Mg Tablet) 6 mg PO BEDTIME PRN PRN Reason: Insomnia Mirtazapine (Mirtazapine 15 Mg Tablet) 15 mg PO BEDTIME [facility] Ondansetron HCl (Ondansetron Hcl 4 Mg/2 Ml Vial) 4 mg IVPUSH Q8H PRN PRN Reason: Nausea and Vomiting Phenytoin (Phenytoin Oral Susp 100 Mg/4 Ml Oral.Susp) 300 mg PO DAILY [facility] Last Admin: 04/07/23 11:34 Dose: Not Given Quetiapine Fumarate (Quetiapine Fumarate 50 Mg Tablet) 50 mg PO BEDTIME [facility] Sodium Chloride (0.9 % Sodium Chloride Flush 3 Ml Syringe) 3 ml IVFLUSH QSHIFT [facility] Last Admin: 04/07/23 08:15 Dose: Not Given Tamsulosin HCl (Tamsulosin Hcl 0.4 Mg Capsule) 0.4 mg PO BID [facility] Last Admin: 04/07/23 10:03 Dose: 0.4 mg Home Medications Medication Instructions Recorded Confirmed Last Taken Type aspirin 81 mg tablet,delayed 81 mg PO DAILY 08/30/22 04/06/23 04/04/23 History release atorvastatin 10 mg tablet 10 mg PO DAILY 08/30/22 04/06/23 04/04/23 History carbidopa 25 mg-levodopa 100 mg 1 tab PO 5XD 08/30/22 04/06/23 04/04/23 History tablet mirtazapine 15 mg tablet 15 mg PO BEDTIME 08/30/22 04/06/23 04/04/23 History tamsulosin 0.4 mg capsule 0.4 mg PO BID 08/30/22 04/06/23 04/04/23 History phenytoin sodium extended 300 mg 300 mg PO DAILY 04/06/23 04/06/23 04/04/23 History capsule quetiapine 50 mg tablet 50 mg PO BEDTIME 04/06/23 04/06/23 04/04/23 History Physical Exam Vital Signs: Vital Signs: Last Vital Signs Temp 98.3 F 04/07/23 08:00 Pulse 82 04/07/23 08:00 Resp 17 04/07/23 08:00 BP 148/79 H 04/07/23 08:00 Pulse Ox 96 04/07/23 08:00 O2 Del Method Nasal Cannula 04/07/23 08:00 O2 Flow Rate 2 04/07/23 08:00 BMI result Body Mass Index 25.5 Neuro: Other: Very drowsy with eyes closed. He was not responding to verbal stimuli. With pain, he be droop. There was no gaze deviation or jerking. There was and there was no jerking movement of body. With pain his left side of body did not respond as well as right side. Exam was limited. Results Labs 04/06/23 19:31 04/07/23 08:22 Labs: Short CBC 04/06/23 Range/Units 19:31 WBC 6.0 (4.8-10.8) X10*3/uL Hgb 14.2 (14.0-18.0) g/dl Hct 40.8 L (42.0-52.0) % Plt Count 148 L (160-400) X10*3/uL BMP 04/06/23 04/07/23 19:31 08:22 Sodium 138 140 Potassium 4.3 4.2 Chloride 103 105 Carbon Dioxide 25 23 BUN 16 15 Creatinine 0.91 0.74 Calcium 9.1 8.8 Liver Function 04/06/23 Range/Units 19:31 Total Bilirubin 0.3 (0.0-1.0) mg/dL Direct Bilirubin 0.1 (0.0-0.5) mg/dL AST 25 (5-37) U/L ALT 29 (0-40) U/L Alkaline Phosphatase 93 (39-117) U/L Albumin 4.0 (3.5-5.0) g/dL Urine 04/07/23 Range/Units 06:22 Urine Color Yellow Urine Appearance Clear Urine pH 5.5 (5.0-9.0) Ur Specific [place] 1.025 (1.005-1.025) Urine Protein 30 (1+) H (Neg-Trace) mg/dL Urine Glucose (UA) 100 H (Negative) mg/dL Head CT revealed a chronic cortical right parietal frontal infarct. Assessment and Plan (1) Multifactorial dementia: Status: Acute (2) Encephalopathy: Status: Acute 77 years old man who probably has underlying multifactorial (vascular + Lewy body) dementia resulting in cognitive dysfunction, behavioral symptoms, and parkinsonism. Chronic stroke on the right side may result in mild left hemiparesis and aphasia if he was left-handed. Seizure disorder was a common complication of this type of stroke. He was also at risk for multiple type of infections including encephalitis. Because of significant lethargy and encephalopathy, my recommendation is to hold sedative medicines including quetiapine, mirtazapine, and even carbidopa levodopa. If Dilantin was given, check Dilantin level and maintain lower therapeutic level, around 12. An EEG is recommended to rule out epileptic encephalopathy. Procedures Date of Service Date of Service: 04/07/23
--- NOTE | 2023-04-07 12:07 | MHC.SL.SWA ---
Speech Pathologist Impression: mild to moderate oral phase dysphagia, advanced dementia/confusion. Risk of Aspiration Due to: Lethargy Neurological Condition Reduced Cognition Dysphasia Diet Status: Pt was referred for a modified barium swallow study by Allen Jean MD. Pt attended this exam accompanied by his son-in-law. Pt denies having any trouble swallowing. Pt denies odynophagia and globus sensation. Pt reports he eats regular textures and has no difficulties with liquids. His son-in-law reports at times pt has difficulty managing saliva. Pt had a head CT on 08/18/22 which showed, ?mild generalized atrophy and old-appearing right frontoparietal infarct.? Liquid Consistency and Strategies for Safe Swallow: Liquid Intake Recommendation: Thin Liquid Intake Strategies: Small Sips Solid Food Consistency: Dietary Recommendations: Grnd/Mech Altered (NDD2) Additional Modifications to Solid Foods: No mixed textures (e.g. cereal and milk). Patient will require 1-1 feeding due to level of confusion, need for close supervision. Observe that patient has swallowed before presenting more food or liquid, liquids by controlled straw sip or cup sip. Do not attempt if patient is lethargic, disengaged in meal. Pills that cannot be crushed can be given whole with puree. NOTE: Son reports patient can pocket pills, observe closely for swallow. Oral Medication Intake: Crushed with Puree Please contact the pharmacy regarding appropriate crushable or liquid drug formulations that are available whenever modified delivery is recommended. Compensatory Strategies and Precautions to be Taken for Safe Swallow: Sitting Upright (90 deg) Liquids from Cup Liquids from Straw Small Bites and Sips Alternate Liquids/Solids Oral Check Supervision While Eating and Drinking for Safe Swallow: Total Assistance (1:1) Foods to Avoid: Mixed textures, large bites of food, difficult to chew solids. Swallowing Recommended Treatments: Compens. Strategy Educat. Recommendation for Speech: Inpatient Speech Therapy Comment: Patient presents with a moderate oral phase dysphagia, characterized by prolonged manipulation of food, history of episodes of pocketing difficulty with mixed textures. Aspiration risk is secondary to level of confusion. Recommend START diet of Ground Mechanical/Altered (NDD2) with THIN liquids, pills crushed in puree (pills that cannot be crushed - whole in puree). Patient will require 1-1 feeding due to noted level of confusion at this time, but may progress both with independence and with advancement of diet. BULK PALLET BUILDER will continue to follow, re-assess as appropriate. DAWNA FRANCIS notified by secure text, RN in person. Frequency/Duration: Date Range for Service Req: Timeline to reassess: Zookeeper Clinican/Clinical Fellow: No Supervisory Statement: I have reviewed and agree with the student/clinical fellow's documentation: N/A Speech Language Pathologist: Shayy Zimmerman M.A., CCC-BULK PALLET BUILDER
[2023-04-07 13:33] LABS: Basophils Percent Auto 0.2 % (0-2); Hematocrit 38.6 % (42.0-52.0); Hemoglobin 13.2 g/dl (14.0-18.0); Imm Gran Abs Auto 0.02 X10*3/uL (0.00-0.03); Imm Gran Pct Auto 0.3 % (0.0-0.4); Lymphocytes Absolute Auto 0.4 X10*3/uL (1.2-4.9); Lymphocytes Percent Auto 6.8 % (20-40); Mean Corpuscular HGB Conc 34.2 g/dl (31.0-36.0); Mean Corpuscular Hemoglobin 31.6 pg (27.0-33.0); Mean Corpuscular Volume 92.3 fL (80.0-98.0); Mean Platelet Volume 8.8 fL (9.4-12.4); Monocytes Absolute Auto 0.8 X10*3/uL (0.1-1.2); Monocytes Percent Auto 12.8 % (2-11); Neutrophils Absolute Auto 5.1 x10*3/uL (2.0-8.3); Neutrophils Percent Auto 79.9 % (45-73); Platelet Count 142 X10*3/uL (160-400); Red Blood Count 4.18 X10*6/uL (4.60-5.80); Red Cell Distribution Width 12.4 % (11.0-16.0); White Blood Count 6.4 X10*3/uL (4.8-10.8)
[2023-04-07 14:07] VITALS: BP 112/61; PULSE 56; RESP 18; TEMP 36.7; O2SAT 98
--- NOTE | 2023-04-07 14:10 | PC.NURSE ---
Pt is still too drowsy to take PO meds, unable to admin carbidopa
--- NOTE | 2023-04-07 14:21 | HO.PM.IMPN ---
Subjective Subjective Date of Service: 04/07/23 Interval History: history per son at bedside mental status not at baseline, tremor worse than usual, poor PO intake seen by FLOATER OPERATOR and cleared for NDD2 solids afebrile on 2L O2 Review of Systems Review of Systems: Yes Unobtainable due to mental status Physical Exam Vital Signs: Vital Signs: Last Vital Signs Temp 98.0 F 04/07/23 14:07 Pulse 56 04/07/23 14:07 Resp 18 04/07/23 14:07 BP 112/61 04/07/23 14:07 Pulse Ox 98 04/07/23 14:07 O2 Del Method Nasal Cannula 04/07/23 14:07 O2 Flow Rate 2 04/07/23 14:07 BMI result Body Mass Index 25.5 Gen: in no acute distress HEENT: sclera anicteric, moist mucus membranes Neck: supple Lungs: diminished Heart: regular rate and rhythm, no murmurs Abd: soft, non-tender, non-distended Ext: no edema Skin: warm/well-perfused Neuro: alert and oriented to self, masked face, tremor, bradykinetic, L-sided weakness (chronic) Psych: impaired insight Objective Data Active Medications Acetaminophen (Acetaminophen 325 Mg Tablet) 650 mg PO Q6H PRN PRN Reason: Pain, Mild (Pain Scale 1-3) Aspirin (Aspirin Enteric Coated 81 Mg Tablet.) 81 mg PO DAILY [facility] Last Admin: 04/07/23 10:02 Dose: 81 mg Documented By: IRA Atorvastatin Calcium (Atorvastatin Calcium 10 Mg Tablet) 10 mg PO DAILY [facility] Last Admin: 04/07/23 10:00 Dose: 10 mg Documented By: IRA Carbidopa/Levodopa (Carbidopa/Levodopa 25/100 Tablet) 1 tab PO 5XD [facility] Last Admin: 04/07/23 14:01 Dose: Not Given Documented By: IRA Non-Admin Reason: Patient Condition Contraindication Dexamethasone Sodium Phosphate (Dexamethasone Sod Phosphate 4 Mg/Ml Vial) 6 mg IVPUSH DAILY [facility] Last Admin: 04/07/23 10:05 Dose: 6 mg Documented By: IRA Enoxaparin Sodium (Enoxaparin Sodium 40 Mg/0.4 Ml Syringe) 40 mg SUBCUT Q24H [facility] Last Admin: 04/06/23 21:51 Dose: 40 mg Documented By: MERCEDES Remdesivir 100 mg/ Sodium (Chloride) 230 mls @ 115 mls/hr IV Q24H [facility] Stop: 04/11/23 12:59 Melatonin (Melatonin 3 Mg Tablet) 6 mg PO BEDTIME PRN PRN Reason: Insomnia Mirtazapine (Mirtazapine 15 Mg Tablet) 15 mg PO BEDTIME [facility] Ondansetron HCl (Ondansetron Hcl 4 Mg/2 Ml Vial) 4 mg IVPUSH Q8H PRN PRN Reason: Nausea and Vomiting Phenytoin (Phenytoin Oral Susp 100 Mg/4 Ml Oral.Susp) 300 mg PO DAILY [facility] Last Admin: 04/07/23 11:34 Dose: Not Given Documented By: IRA Non-Admin Reason: Patient Condition Contraindication Quetiapine Fumarate (Quetiapine Fumarate 50 Mg Tablet) 50 mg PO BEDTIME [facility] Sodium Chloride (0.9 % Sodium Chloride Flush 3 Ml Syringe) 3 ml IVFLUSH QSHIFT [facility] Last Admin: 04/07/23 08:15 Dose: Not Given Documented By: IRA Non-Admin Reason: Med Not Available Tamsulosin HCl (Tamsulosin Hcl 0.4 Mg Capsule) 0.4 mg PO BID [facility] Last Admin: 04/07/23 10:03 Dose: 0.4 mg Documented By: IRA Labs 04/07/23 13:28 04/07/23 08:22 Labs: Laboratory Results - last 24 hr 04/06/23 04/07/23 04/07/23 19:31 06:22 08:22 MCV 91.7 MCH 31.9 MCHC 34.8 RDW 12.4 Plt Count 148 L MPV 8.8 L Immature Gran % (Auto) 0.3 Neut % (Auto) 79.5 H Lymph % (Auto) 5.7 L [place] % (Auto) 14.2 H Eos % (Auto) 0.0 Baso % (Auto) 0.3 Lymph # (Auto) 0.3 L [place] # (Auto) 0.9 Eos # (Auto) 0.0 Baso # (Auto) 0.0 Abs Immat Gran (auto) 0.02 Absolute Neuts (auto) 4.8 Absolute Nucleated RBC 0.000 Nucleated RBC % (auto) 0.0 Anion Gap 14 16 Estim Creat Clear Calc 75.7 93.2 Estimated GFR > 60 > 60 Random Glucose 121 H 95 Calcium 9.1 8.8 Total Bilirubin 0.3 Direct Bilirubin 0.1 AST 25 ALT 29 Alkaline Phosphatase 93 C-Reactive Protein 10.23 H Total Protein 7.1 Albumin 4.0 Procalcitonin 0.05 Urine Color Yellow Urine Appearance Clear Urine pH 5.5 Ur Specific [place] 1.025 Urine Protein 30 (1+) H Urine Glucose (UA) 100 H Urine Ketones 15 Urine Blood Trace H Urine Nitrite Negative Ur Leukocyte Esterase Negative Urine RBC 3-5 H Urine WBC 0-5 Ur Squamous Epith Cells 0-2 Urine Bacteria None Seen Hyaline Casts 3-5 04/07/23 13:28 MCV 92.3 MCH 31.6 MCHC 34.2 RDW 12.4 Plt Count 142 L MPV 8.8 L Immature Gran % (Auto) 0.3 Neut % (Auto) 79.9 H Lymph % (Auto) 6.8 L [place] % (Auto) 12.8 H Eos % (Auto) 0.0 Baso % (Auto) 0.2 Lymph # (Auto) 0.4 L [place] # (Auto) 0.8 Eos # (Auto) 0.0 Baso # (Auto) 0.0 Abs Immat Gran (auto) 0.02 Absolute Neuts (auto) 5.1 Absolute Nucleated RBC 0.000 Nucleated RBC % (auto) 0.0 Anion Gap Estim Creat Clear Calc Estimated GFR Random Glucose Calcium Total Bilirubin Direct Bilirubin AST ALT Alkaline Phosphatase C-Reactive Protein Total Protein Albumin Procalcitonin Urine Color Urine Appearance Urine pH Ur Specific [place] Urine Protein Urine Glucose (UA) Urine Ketones Urine Blood Urine Nitrite Ur Leukocyte Esterase Urine RBC Urine WBC Ur Squamous Epith Cells Urine Bacteria Hyaline Casts Assessment and Plan (1) Encephalopathy: Status: Acute (2) Multifactorial dementia: Status: Acute Plan d2 77yo M with seizures disorder, multifactorial dementia, Parkinsons disease brought in for generalized weakness/cough. Seen in ED 04/05/23 for possible seizure and also Covid-19 without hypoxia Presented with worsening weakness and cough and found to have hypoxia AHRF due to Covid-19 - Isolation, remdesivir 04/07-04/11/23, dexamethasone 3-04/15/23, monitor CRP, wean off O2 as tolerated Parksinons disease - Continue Sinemet Encephalopathy due to infection - Treat Covid-19. Neuro consulted- obtain EEG to r/o epileptic encephalopathy. Hold quetiapine + mirtazapine for now. Seizure disorder - Continue phenytoin, check level. BPH - Tamsulosin HLD - statin VTE ppx - LMWH dispo - TBD In my clinical judgment, the patient requires continued inpatient hospitalization for the following reasons: hypoxia Total time managing care of this patient today: 40 minutes. Quality Stroke Does the patient have a stroke diagnosis?: No VTE Prior VTE?: No VTE Risk Level:: Medical - moderate - high VTE Device Contraindication: Treatment Not Indicated VTE Drug Contraindication: N/A - Med Ordered
--- NOTE | 2023-04-07 15:36 | MHC.EDTECH ---
Patients bed pad dry. Will recheck.
[2023-04-07 16:00] VITALS: BP 127/72; PULSE 84; RESP 18; TEMP 36.7; O2SAT 97
[2023-04-07 18:46] VITALS: BMI 25.5
[2023-04-07 20:00] VITALS: BP 121/67; PULSE 83; RESP 19; TEMP 37.1; O2SAT 96
[2023-04-08] VITALS (10 sets, daily range): BP systolic 116–156; BP diastolic 56–84; PULSE 55–77; RESP 19–20; TEMP 36.4–37; O2SAT 92–98
--- NOTE | 2023-04-08 10:27 | MHC.CM.PN ---
Addendum entered by Shayy Mason RN 04/08/23 11:11: CM CONTACTED PT'S TO UPDATE HER ON ANTIC DC TOMORROW 04/09, PT'S REPORTS SHE WOULD LIKE PT HOME EARLIER IF POSSIBLE AND WOULD LIKE BLS TRANSPORT HOME FOR PT. Original Note: EMR REVIEWED, PT W/COVID19/PARKINSONS, PER HOSPITALIST PT IMPROVING AND LIKELY TO BE CLEARED FOR DC OVER W/E, CM WILL CONT TO FOLLOW DC NEEDS.
--- NOTE | 2023-04-08 10:33 | HO.PM.IMPN ---
Subjective Subjective Date of Service: 04/08/23 Interval History: much more awake/alert, tolerating NDD2 diet + taking pills on 2L O2 Review of Systems Review of Systems: Yes all other systems are reviewed and are negative Physical Exam Vital Signs: Vital Signs: Last Vital Signs Temp 97.6 F 04/08/23 08:00 Pulse 77 04/08/23 09:37 Resp 20 04/08/23 08:00 BP 132/80 04/08/23 09:37 Pulse Ox 93 04/08/23 09:37 O2 Del Method Nasal Cannula 04/08/23 08:00 O2 Flow Rate 2 04/08/23 08:00 BMI result Body Mass Index 25.5 Gen: in no acute distress HEENT: sclera anicteric, moist mucus membranes Neck: supple Lungs: diminished Heart: regular rate and rhythm, no murmurs Abd: soft, non-tender, non-distended Ext: no edema Skin: warm/well-perfused Neuro: alert and oriented, masked face, tremor, bradykinetic, L-sided weakness (chronic) Psych: appropriate affect Objective Data Active Medications Acetaminophen (Acetaminophen 325 Mg Tablet) 650 mg PO Q6H PRN PRN Reason: Pain, Mild (Pain Scale 1-3) Aspirin (Aspirin Enteric Coated 81 Mg Tablet.) 81 mg PO DAILY [facility] Last Admin: 04/08/23 09:29 Dose: 81 mg Documented By: MATTHIAS Atorvastatin Calcium (Atorvastatin Calcium 10 Mg Tablet) 10 mg PO DAILY [facility] Last Admin: 04/08/23 09:29 Dose: 10 mg Documented By: MATTHIAS Carbidopa/Levodopa (Carbidopa/Levodopa 25/100 Tablet) 1 tab PO 5XD [facility] Last Admin: 04/08/23 09:29 Dose: 1 tab Documented By: MATTHIAS Dexamethasone Sodium Phosphate (Dexamethasone Sod Phosphate 4 Mg/Ml Vial) 6 mg IVPUSH DAILY [facility] Last Admin: 04/08/23 09:29 Dose: 6 mg Documented By: MATTHIAS Enoxaparin Sodium (Enoxaparin Sodium 40 Mg/0.4 Ml Syringe) 40 mg SUBCUT Q24H [facility] Last Admin: 04/07/23 21:17 Dose: 40 mg Documented By: ADÁN Remdesivir 100 mg/ Sodium (Chloride) 230 mls @ 115 mls/hr IV Q24H [facility] Stop: 04/11/23 12:59 Mirtazapine (Mirtazapine 15 Mg Tablet) 15 mg PO BEDTIME [facility] Ondansetron HCl (Ondansetron Hcl 4 Mg/2 Ml Vial) 4 mg IVPUSH Q8H PRN PRN Reason: Nausea and Vomiting Phenytoin (Phenytoin Oral Susp 100 Mg/4 Ml Oral.Susp) 300 mg PO DAILY [facility] Last Admin: 04/08/23 09:28 Dose: 300 mg Documented By: MATTHIAS Quetiapine Fumarate (Quetiapine Fumarate 50 Mg Tablet) 50 mg PO BEDTIME [facility] Sodium Chloride (0.9 % Sodium Chloride Flush 3 Ml Syringe) 3 ml IVFLUSH QSHIFT [facility] Last Admin: 04/08/23 09:29 Dose: 3 ml Documented By: MATTHIAS Tamsulosin HCl (Tamsulosin Hcl 0.4 Mg Capsule) 0.4 mg PO BID [facility] Last Admin: 04/08/23 09:29 Dose: 0.4 mg Documented By: MATTHIAS Labs 04/08/23 08:19 04/08/23 08:19 Labs: Laboratory Results - last 24 hr 04/07/23 04/08/23 13:28 08:19 MCV 92.3 92.9 MCH 31.6 31.1 MCHC 34.2 33.5 RDW 12.4 12.5 Plt Count 142 L 156 L MPV 8.8 L 9.1 L Immature Gran % (Auto) 0.3 Neut % (Auto) 79.9 H Lymph % (Auto) 6.8 L [place] % (Auto) 12.8 H Eos % (Auto) 0.0 Baso % (Auto) 0.2 Lymph # (Auto) 0.4 L [place] # (Auto) 0.8 Eos # (Auto) 0.0 Baso # (Auto) 0.0 Abs Immat Gran (auto) 0.02 Absolute Neuts (auto) 5.1 Absolute Nucleated RBC 0.000 0.000 Nucleated RBC % (auto) 0.0 0.0 Anion Gap 12 Estim Creat Clear Calc 82.1 Estimated GFR > 60 Random Glucose 149 H Calcium 9.1 Phenytoin < 1.8 L* Assessment and Plan (1) Encephalopathy: Status: Acute (2) Multifactorial dementia: Status: Acute Plan d3 77yo M with seizures disorder, multifactorial dementia, Parkinsons disease brought in for generalized weakness/cough. seen in ED 1/2/24 for possible seizure and also Covid-19 without hypoxia presented with worsening weakness and cough and admitted for hypoxia AHRF due to Covid-19 - isolation, remdesivir 04/07-04/11/23, dexamethasone 04/06-04/15/23, trend CRP, wean off O2 as tolerated Parksinons disease - continue Sinemet encephalopathy due to infection - improved, EEG to r/o epileptic encephalopathy per Neuro, resume quetiapine + mirtazapine seizure disorder - restart phenytoin, recheck level BPH - tamsulosin HLD - statin VTE ppx - LMWH dispo - anticipate home where he has 25/10 care once off O2 In my clinical judgment, the patient requires continued inpatient hospitalization for the following reasons: hypoxia Total time managing care of this patient today: 40 minutes. Quality Stroke Does the patient have a stroke diagnosis?: No VTE Prior VTE?: No VTE Risk Level:: Medical - moderate - high VTE Device Contraindication: Treatment Not Indicated VTE Drug Contraindication: N/A - Med Ordered
--- NOTE | 2023-04-08 12:04 | MHC.SL.SWA ---
Speech Pathologist Impression: Risk of aspiration, Hx silent aspiration per MBSS 08/27/22, Moderate oropharyngeal dysphagia Risk of Aspiration Due to: Lethargy Neurological Condition Reduced Cognition Dysphasia Diet Status: Start on NDD3/HTL Liquid Consistency and Strategies for Safe Swallow: Liquid Intake Recommendation: Honey Thick Liquid Intake Strategies: Small Sips No Straws Solid Food Consistency: Dietary Recommendations: Chopped/Advanced (NDD3) Additional Modifications to Solid Foods: Recommend pt start on CHOPPED/ADVANCED (NDD3) solids and HONEY THICK liquids, pills to be CRUSHED in PUREE. Please refer to pt's previous MBSS report from August 2022 for these specific recommendations: -Oral care before first meal and after each subsequent meal -Sit upright during PO intake and for at least 30 minutes afterwards -Moisten food with sauces and gravies, which are thickened to honey consistency, and mixed/blended in well with food -Avoid sticky, crunchy, or hard foods -Avoid mixed textures and thin sauces (liquid from puree; soups; cereal with milk) -Take small bites and chew food well -Follow each bite with 1-2 dry swallows to promote pharyngeal clearance -Take small, individual sips by spoon or cup -Follow each sip with 1-2 dry swallows to promote pharyngeal clearance -Avoid the use of straws Oral Medication Intake: Crushed with Puree Please contact the pharmacy regarding appropriate crushable or liquid drug formulations that are available whenever modified delivery is recommended. Compensatory Strategies and Precautions to be Taken for Safe Swallow: Sitting Upright (90 deg) No Straw Small Bites and Sips Alternate Liquids/Solids Rate of Ingestion Change Oral Check Avoid Specific Foods Supervision While Eating and Drinking for Safe Swallow: Total Assistance (1:1) Foods to Avoid: Mixed textures, large bites of food, difficult to chew solids. Swallowing Recommended Treatments: Compens. Strategy Educat. Recommendation for Speech: Inpatient Speech Therapy Comment: Pt would benefit from repeat-MBSS to be done likely as outpatient once he has completed treatment with visiting nursing staff. Gta Clinican/Clinical Fellow: No Supervisory Statement: I have reviewed and agree with the student/clinical fellow's documentation: N/A Speech Language Pathologist: Patricia Palacios M.A., CCC-HVAC SERVICE TECH
--- NOTE | 2023-04-08 16:12 | PC.NURSE ---
Assumed care of patient at this time.
[2023-04-09 03:11] VITALS: BP 140/86; PULSE 73; RESP 20; TEMP 36.2; O2SAT 92
[2023-04-09 04:00] VITALS: BP 140/86; PULSE 73; RESP 20; TEMP 36.2
[2023-04-09 07:52] VITALS: BP 137/84; PULSE 84; RESP 18; TEMP 36.3; O2SAT 95
--- NOTE | 2023-04-09 11:00 | PM.DS ---
DS: Providers Provider Date of Service: 04/11/23 Date of admission: 04/06/23 20:15 Primary care physician: Allen Jean MD Consults: 04/07/23 09:53 Consult to Neurology Routine Consulting Provider: [facility] Reason for consultation: advanced Parkinsons 04/08/23 16:21 Consult to Wound Care Routine Reason for consultation: enlrgd red scrotum DS: Diagnosis Discharge Diagnosis (1) Encephalopathy: Status: Acute (2) Multifactorial dementia: Status: Acute DS: Summary Hospital Course Hospital Course: HPI: Date of Service: 04/06/23 Chief Complaint: Generalized weakness, cough This is a 77-year-old male with pertinent history of seizure disorder, Parkinson's disease with dementia, mixed hyperlipidemia, mood disorder, BPH who was brought to the emergency department for evaluation of generalized weakness and cough. Patient initially presented to the ER on 04/05 after a possible seizure episode. He was loaded with Keppra and discharged on p.o. Keppra. Patient also tested positive for COVID-19 on 04/05/2023. Patient was brought to the ER again today for evaluation of generalized weakness, poor p.o. intake and cough. Unable to obtain history from the patient due to dementia. History obtained from managed care nurse at bedside. Also patient reportedly had a subjective fever on the day of presentation. Unable to obtain review of systems. In the emergency department, patient was found to be hypoxemic and placed on supplemental oxygen. Hospital course: 77yo M with seizures disorder, multifactorial dementia, Parkinsons disease,brought in for generalized weakness/cough. seen in ED 04/05/23 for possible seizure and also Covid-19 without hypoxia, presented with worsening weakness, confusion and cough and admitted for acute hypoxic respiratory failure due to COVID-19 patient was admitted under isolation treated with IV remdesivir, dexamethasone, patient responded well to above treatment currently on room air, finger oximetry 95%, in regard to confusion, diagnosed to have acute toxic metabolic encephalopathy due to infection seen by Neurology he recommended EEG that did not show acute seizure-like activity, patient has been placed back on home dose of phenytoin, noted to have low level of phenytoin 1.8, recommend close outpatient follow-up with Neurology and dose adjustment if needed. Parksinons disease - continue Sinemet and outpatient follow-up with Neurology Mood disorder/unspecified dementia continue quetiapine + mirtazapine. seizure disorder - continue phenytoin, low level 1.8 BPH -continue tamsulosin HLD - continue Lipitor Time Attestation Discharge coordination time: Greater than 30 minutes Quality: Safe Use of Opioids Does Pt have an Active Cancer Diagnosis on the Problem List?: No Quality: Stroke Does the patient have a stroke diagnosis?: No Physical Exam Vital Signs: Vital Signs: Last Vital Signs Temp 97.3 F 04/09/23 07:52 Pulse 84 04/09/23 07:52 Resp 18 04/09/23 07:52 BP 137/84 04/09/23 07:52 Pulse Ox 95 04/09/23 07:52 O2 Del Method Room Air 04/09/23 07:52 O2 Flow Rate 2 04/09/23 04:00 BMI result Body Mass Index 25.5 Const: Other: Gen: awake alert, in no acute distress HEENT: sclera anicteric, moist mucus membranes Neck: supple Lungs: diminished Heart: regular rate and rhythm, no murmurs Abd: soft, non-tender, non-distended Ext: no edema Skin: warm/well-perfused Neuro: alert and oriented, masked face, tremor, bradykinetic, L-sided weakness (chronic) Psych: appropriate affect DS: Data Data Completed and Pending Labs on day of discharge: Laboratory Results - last 24 hr 04/09/23 08:05 WBC 4.4 L RBC 4.54 L Hgb 14.6 Hct 41.7 L MCV 91.9 MCH 32.2 MCHC 35.0 RDW 12.2 Plt Count 150 L MPV 9.3 L Absolute Nucleated RBC 0.000 Nucleated RBC % (auto) 0.0 Sodium 136 Potassium 3.9 Chloride 101 Carbon Dioxide 26 Anion Gap 13 BUN 14 Creatinine 0.70 Estim Creat Clear Calc 98.5 Estimated GFR > 60 Random Glucose 129 H Calcium 8.9 C-Reactive Protein 8.49 H Phenytoin 1.8 L* Discharge Plan Discharge Anticipated Discharge Date/Time: 04/09/23 10:55 Patient Disposition: Home Health Service Discharge Diagnosis: Acute toxic metabolic encephalopathy Acute hypoxic respiratory failure due to COVID-19 Referrals: [facility] [Outside] - 1 Day (RESUMPTION OF LONG TERM, SPEECH AND PHYSICAL THERAPY) Allen Jean MD [Primary Care Provider] - 1 Week Discharge Medications: New dexamethasone 6 mg tablet 6 mg PO DAILY Qty: 5 0RF dexamethasone 6 mg tablet 6 mg PO DAILY Qty: 5 0RF Continued atorvastatin 10 mg tablet 10 mg PO DAILY tamsulosin 0.4 mg capsule 0.4 mg PO BID mirtazapine 15 mg tablet 15 mg PO BEDTIME carbidopa-levodopa 25-100 mg tablet 1 tab PO 5XD aspirin 81 mg Tablet,Delayed Release (Dr/Ec) 81 mg PO DAILY phenytoin sodium extended 300 mg capsule 300 mg PO DAILY quetiapine 50 mg tablet 50 mg PO BEDTIME Discharge Orders: Discharge Order (Routine); Ordered 04/09/23 Ordered By: Isabelle Winchester Diet: Advance to usual diet Activity on Discharge: As tolerated Stand Alone Forms: Patient Portal Discharge page Care Plan Goals: Confusion resolved, take cough medications and analgesics as needed Take dexamethasone 6 mg 1 tablet daily for 5 more days Take chopped/advanced diet with honey thick liquids Health Concerns: Continue all home medications as before Plan of Treatment: Outpatient follow-up with primary care physician Assessment: As above Discharge Date/Time: 04/09/23 14:36
[2023-04-09 11:51] VITALS: BP 149/75; PULSE 72; RESP 20; TEMP 36.3; O2SAT 93
--- NOTE | 2023-04-09 12:16 | MHC.CM.PN ---
Pt medically cleared for D/C home with resumption of [facility]. Transport via BLS at 12pm. Pts Raya renetta.
--- NOTE | 2023-04-11 09:50 | W.MHC.F2F ---
Service Date Service Date: 04/11/23 Encounter Date of encounter: 04/09/23 Reasons for Services Signs and symptoms assessed: Weakness, cough, hypoxia Reason for mcfp: neurological assessment and medication management Reason for physical therapy: home safety and mobility Reason for speech therapy: swallowing impairment Homebound: Leaving the home is medically contraindicated at this time without the asist of a device and/or another person due th the listed conditions above and below. Reason homebound: weakness related to hospital stay Certification: Based on the above findings, I certify that this patient is confined to the home and needs intermittent mcfp care, physical therapy and/or speech therapy, or continues to need occupational therapy. The patient is under my care, and I have initiated the establishment of the plan of care. The patient will be followed by a physician who will periodically review the plan of care. Time Spent With Patient Time: Total time managing care of this patient today ____ minutes.
== END 2023-04-09 14:36 | disposition home health service (06) | DRG 177 ==
LOC: HO.ED 20:22 → HO.EDOVER 20:25 → HO.S3 04-07 12:48 → HO.EDOVER 04-07 13:10 → HO.IMC 04-07 17:05
PROVIDERS: Admitting Provider Student in an Organized Health Care Education/Training Program; Emergency Provider Emergency Medicine Emergency Medical Services; PCP Internal Medicine Medical Oncology; Visit Provider Hospitalist
DX: U07.1 COVID-19 (principal); G92.8 Other toxic encephalopathy; J96.01 Acute respiratory failure with hypoxia; F02.818 Dementia in other diseases classified elsewhere, unspecified severity, with other behavioral disturbance; F01.518 Vascular dementia, unspecified severity, with other behavioral disturbance; G20.A1 Parkinson's disease without dyskinesia, without mention of fluctuations; E78.2 Mixed hyperlipidemia; N40.0 Benign prostatic hyperplasia without lower urinary tract symptoms; G40.909 Epilepsy, unspecified, not intractable, without status epilepticus; Z79.82 Long term (current) use of aspirin; Z79.899 Other long term (current) drug therapy
CPT/HCPCS: 0241U; 36415; 70450; 71045; 74176; 80048; 80076; 80185; 81001; 83605; 84145; 85025; 85027; 86140; 87040; 92526; 92610; 95816; 96374; 96375; 97110; 97162; 99284; 99285; J0248; J1100; J1650; J1953; J2060

== ENCOUNTER → 2023-04-06 20:15 | Outpatient (BNV) | payer MEDICARE, SELFPAY | PROVIDERS: Admitting Provider Student in an Organized Health Care Education/Training Program; Emergency Provider Emergency Medicine Emergency Medical Services; Visit Provider Student in an Organized Health Care Education/Training Program | DX: G93.40 Encephalopathy, unspecified (principal); G20.A1 Parkinson's disease without dyskinesia, without mention of fluctuations; F02.83 Dementia in other diseases classified elsewhere, unspecified severity, with mood disturbance | CPT/HCPCS: 99222; 99232; 99239; G0180 ==

== ENCOUNTER 2023-09-06 09:37 | Outpatient (REF) | payer MEDICARE, SELFPAY ==
[2023-09-06 09:55] LABS: MANUAL DIFF FLAG NO
[2023-09-06 10:54] LABS: Basophils Percent Auto 0.5 % (0-2); Eosinophils Percent Auto 0.6 % (0-4); Hematocrit 43.2 % (42.0-52.0); Hemoglobin 14.4 g/dl (14.0-18.0); Imm Gran Abs Auto 0.04 X10*3/uL (0.00-0.03); Imm Gran Pct Auto 0.6 % (0.0-0.4); Lymphocytes Absolute Auto 0.7 X10*3/uL (1.2-4.9); Lymphocytes Percent Auto 11.6 % (20-40); Mean Corpuscular HGB Conc 33.3 g/dl (31.0-36.0); Mean Corpuscular Hemoglobin 30.7 pg (27.0-33.0); Mean Corpuscular Volume 92.1 fL (80.0-98.0); Mean Platelet Volume 9.5 fL (9.4-12.4); Monocytes Absolute Auto 0.6 X10*3/uL (0.1-1.2); Monocytes Percent Auto 9.8 % (2-11); Neutrophils Absolute Auto 4.9 x10*3/uL (2.0-8.3); Neutrophils Percent Auto 76.9 % (45-73); Platelet Count 217 X10*3/uL (160-400); Red Blood Count 4.69 X10*6/uL (4.60-5.80); Red Cell Distribution Width 12.2 % (11.0-16.0); White Blood Count 6.3 X10*3/uL (4.8-10.8)
[2023-09-06 11:09] LABS: Estimated Average Glucose 123 mg/dL; Hemoglobin A1c % 5.9 % (<6.0)
[2023-09-06 11:45] LABS: Alanine Aminotransferase < 5 U/L (0-40); Albumin Level 4.2 g/dL (3.5-5.0); Alkaline Phosphatase 69 U/L (39-117); Anion Gap 11 (12-20); Aspartate Amino Transferase 14 U/L (5-37); Bilirubin Total 0.4 mg/dL (0.0-1.0); Blood Urea Nitrogen 12 mg/dL (9-16); Calcium 9.7 mg/dL (8.4-10.2); Carbon Dioxide 29 mmol/L (22-29); Chloride 101 mmol/L (96-108); Cholesterol 116 mg/dL (<200); Estimated Glomerular Filt Rate > 60; Glucose Fasting 97 mg/dL (60-99); HDL Cholesterol 40 mg/dL (>40); LDL Cholesterol Calculated 53 mg/dL (<100); Potassium 4.3 mmol/L (3.3-5.1); Sodium 137 mmol/L (135-145); Total Protein 7.1 g/dL (6.5-8.0); Triglycerides 117 mg/dL (<150)
[2023-09-06 11:53] LABS: Prostate Specific Antigen 3.54 ng/mL (<0.05-4.0); Vitamin B12 344 pg/mL (200-900)
[2023-09-06 12:01] LABS: Vitamin D 25-OH Total 37.7 ng/mL (>30)
== END 2023-09-06 09:38 | disposition home or self-care (01) ==
LOC: HO.LAB 09:37
PROVIDERS: PCP Internal Medicine Medical Oncology; Visit Provider Internal Medicine Medical Oncology
DX: N40.0 Benign prostatic hyperplasia without lower urinary tract symptoms (principal); E78.2 Mixed hyperlipidemia; E78.5 Hyperlipidemia, unspecified; E53.9 Vitamin B deficiency, unspecified; Z12.5 Encounter for screening for malignant neoplasm of prostate; Z13.1 Encounter for screening for diabetes mellitus
CPT/HCPCS: 36415; 80053; 80061; 80184; 82306; 82607; 83036; 84153; 85025

== ENCOUNTER 2023-10-09 17:09 | Emergency (ER) | payer MEDICARE, SELFPAY ==
--- NOTE | 2023-10-09 | ECG_ITS ---
Test Reason : HYPERTENSION Blood Pressure : / mmHG Vent. Rate : 064 BPM Atrial Rate : 064 BPM P-R Int : 116 ms QRS Dur : 092 ms QT Int : 428 ms P-R-T Axes : 073 -12 089 degrees QTc Int : 441 ms Normal sinus rhythm Nonspecific ST and T wave abnormality Abnormal ECG When compared with ECG of 30-AUG-2022 05:28, ST no longer depressed in Inferior leads Nonspecific T wave abnormality no longer evident in Inferior leads Nonspecific T wave abnormality, worse in Lateral leads Referred By: Generic ED Physician Electronically Signed By:Carlitos Mendes
[2023-10-09 17:21] VITALS: BP 164/82; PULSE 76; O2SAT 97
[2023-10-09 17:25] VITALS: BP 168/82; PULSE 79; RESP 18; TEMP 37; O2SAT 99; BMI 26.9
--- NOTE | 2023-10-09 17:30 | ED.GENADULT ---
HPI - General Adult General Chief complaint: General Medical Stated complaint: HTN Time Seen by Provider: 10/09/23 17:30 Source: patient and other (Caregiver, Trang) Mode of arrival: EMS Limitations: no limitations History of Present Illness ED Provider: Dr. Zaheer Gates HPI narrative: 78-year-old male with a history of Parkinson's disease, dementia, BPH, stroke, seizures who presents emergency department for evaluation of labile blood pressure. The information comes from the patient's caregiver, Trang who knows the patient well. Trang states the patient gets 24 hour/7 day a week care at home. She states that yesterday the patient was drooling and was not himself. He also complained of right-sided neck pain and headache. Patient had low blood pressures yesterday ranging from 72/46 to 83/51. Patient did have a history of hypertension but his blood pressure medications were stopped sometime in the past for unknown reason. Today, the patient's blood pressure was 170/92. Patient's primary care provider was contacted and they advised that the patient go to the emergency department for evaluation. The patient has been eating and drinking well. He had no complaints this morning. The patient denied headache, chest pain, shortness of breath, abdominal pain, nausea, vomiting or diarrhea. Related Data Home Medications ?Medication ?Instructions ?Recorded ?Confirmed aspirin 81 mg tablet,delayed 81 mg PO DAILY 08/30/22 04/06/23 release atorvastatin 10 mg tablet 10 mg PO DAILY 08/30/22 04/06/23 carbidopa 25 mg-levodopa 100 mg 1 tab PO 5XD 08/30/22 04/06/23 tablet mirtazapine 15 mg tablet 15 mg PO BEDTIME 08/30/22 04/06/23 tamsulosin 0.4 mg capsule 0.4 mg PO BID 08/30/22 04/06/23 phenytoin sodium extended 300 mg 300 mg PO DAILY 04/06/23 04/06/23 capsule quetiapine 50 mg tablet 50 mg PO BEDTIME 04/06/23 04/06/23 Previous Rx's ?Medication ?Instructions ?Recorded dexamethasone 6 mg tablet 6 mg PO DAILY #5 tabs 04/09/23 dexamethasone 6 mg tablet 6 mg PO DAILY #5 tabs 04/09/23 Allergies Allergy/AdvReac Type Severity Reaction Status Date / Time No Known Allergies Allergy Verified 10/09/23 17:27 Review of Systems Review of Systems: Yes all other systems are reviewed and are negative [facility] Past Medical History [facility] Narrative: Social history: The patient lives at home with his . He does have 24 hour a day 7 days a week care and his caregiver, Trang is here in the emergency department with the patient. Medical History Mixed hyperlipidemia BPH (benign prostatic hyperplasia) Dementia Seizure Parkinson's disease Social History Social History Household Members: Family and Caregiver Housing: House Do you presently have visiting nurse or other home services: Yes Alcohol intake: current Alcohol intake frequency: holidays/special occasions only Alcohol type: wine Comment: fam at bedside Patient Tobacco Use Status: Never used Tobacco Smoked in Last 30 Days: No Use of substances other than those prescribed or required for medical reasons: No Advance Directives: Yes Advance Directives Information Provided: No Advance Directives on File: No Advance Directives Date on File: 04/05/23 Do you have a plan to hurt others: No Plan service: Yes Physical Exam ED Vital Signs: Vital Signs - 24 hr 10/09/23 17:25 10/09/23 17:48 10/09/23 19:09 Temperature 98.6 F 98.1 F Pulse Rate 79 60 63 Respiratory Rate 18 16 16 Blood Pressure 168/82 H 161/79 H 163/80 H Pulse Oximetry 99 97 96 Oxygen Delivery Method Room Air Room Air Room Air Aerosol Mask BMI result Body Mass Index 26.9 Vital signs did reveal an elevated blood pressure of 168/82. Exam: General: Awake, alert in no distress Head: Normocephalic, atraumatic EENT: PERRL, Lids normal, sclera normal, conjunctiva normal, nose normal , ears normal, throat without erythema or exudates Neck: Supple, no adenopathy Lung: breath sounds symmetric, no wheezing, rales or rhonchi Chest: symmetric movement, nontender Heart: regular rate and rhythm, normal S1, S2 no murmurs or rubs Abdomen: soft, non-tender, nondistended, normal bowel sounds Back: no vertebral tenderness, no CVAT Extremities: no deformities, moves all extremities symmetrically Neuro: Awake, alert, oriented, normal speech, cranial nerves intact, moves all extremities symmetrically Psych: Pleasant, cooperative Medical Decision Making Medical Decision Making MDM Narrative: 78-year-old male with a history of Parkinson's disease, dementia, BPH, stroke, seizures who presents emergency department for evaluation of labile blood pressure. Patient did have drooling and did not appear well yesterday, he complained of neck pain and headache and had unusually low blood pressures ranging from 72/44 to 83/51. Today patient has no complaints in his blood pressures were elevated at 1 70/92-the patient does not take medications for hypertension, these were stopped sometime in the past for an unclear reason. Patient's vital signs did reveal an elevated blood pressure of 168/82. Patient's physical examination was otherwise unremarkable. Differential diagnosis: ?Includes but is not limited to essential hypertension, labile blood pressure, anemia, electrolyte abnormalities, kidney disease, liver disease, myocardial infarction, stroke Following evaluation was ordered: CBC, CMP, troponin, EKG Course: 19:01 My interpretation patient's laboratory evaluation is as follows: CBC was normal. CMP was normal with normal LFTs and normal BUN and creatinine. Troponin was detectable but not elevated at 2.7. Patient's 12 EKG revealed no acute abnormalities. This time I do not think that the patient needs any further management in the emergency department but will need monitoring of his blood pressures he determine if he needs to be started back on antihypertensive medications. I did advise his caregiver to take his blood pressure is in the morning and at night on Mondays, Wednesdays and Fridays for the next 2 weeks and to make a follow-up appointment with his primary care provider in 2 weeks to discuss these readings to determine if he needs any medical management of his blood pressure. According to his care give her, the patient has significant Parkinson's disease and can not walk therefore he is going to need an ambulance home. Admission/Observation Consideration of admission/observation: Escalation of care including admission/observation considered Lab Data MDM Lab Attestation statement: I reviewed the patient's lab results. 10/09/23 18:15 10/09/23 18:15 Labs: Lab Results 10/09/23 Range/Units 18:15 WBC 5.7 (4.8-10.8) X10*3/uL RBC 4.45 L (4.60-5.80) X10*6/uL Hgb 13.9 L (14.0-18.0) g/dl Hct 40.9 L (42.0-52.0) % MCV 91.9 (80.0-98.0) fL MCH 31.2 (27.0-33.0) pg MCHC 34.0 (31.0-36.0) g/dl RDW 12.5 (11.0-16.0) % Plt Count 170 (160-400) X10*3/uL MPV 9.4 (9.4-12.4) fL Immature Gran % (Auto) 0.4 (0.0-0.4) % Neut % (Auto) 67.7 (45-73) % Lymph % (Auto) 18.3 L (20-40) % [place] % (Auto) 11.3 H (2-11) % Eos % (Auto) 1.8 (0-4) % Baso % (Auto) 0.5 (0-2) % Lymph # (Auto) 1.0 L (1.2-4.9) X10*3/uL [place] # (Auto) 0.6 (0.1-1.2) X10*3/uL Eos # (Auto) 0.1 (0.0-0.4) X10*3/uL Baso # (Auto) 0.0 (0.0-0.2) X10*3/uL Abs Immat Gran (auto) 0.02 (0.00-0.03) X10*3/uL Absolute Neuts (auto) 3.9 (2.0-8.3) x10*3/uL Absolute Nucleated RBC 0.000 (0.0-0.012) X10*3/uL Nucleated RBC % (auto) 0.0 (0.0-0.2) /100WBC Sodium 137 (135-145) mmol/L Potassium 4.5 (3.3-5.1) mmol/L Chloride 101 (96-108) mmol/L Carbon Dioxide 28 (22-29) mmol/L Anion Gap 13 (12-20) BUN 11 (9-16) mg/dL Creatinine 0.96 (0.5-1.4) mg/dL Estim Creat Clear Calc 70.7 Estimated GFR > 60 Random Glucose 112 (60-115) mg/dL Calcium 9.2 (8.4-10.2) mg/dL Total Bilirubin 0.4 (0.0-1.0) mg/dL AST 13 (5-37) U/L ALT < 5 (0-40) U/L Alkaline Phosphatase 65 (39-117) U/L Troponin I High Sens 2.7 D (<3.5-35.0) ng/L Total Protein 6.6 (6.5-8.0) g/dL Albumin 4.1 (3.5-5.0) g/dL Independent Interpretation I performed an independent interpretation of an: EKG Interpretation: My interpretation of the patient's 12 EKG done at 17:32 hours is as follows: Normal sinus rhythm with a rate of 64, normal TN interval, QRS duration QTC interval, no ST segment elevation, no ST segment depression, no T-wave abnormalities, no PACs, no PVCs Independent Historian Clinical information obtained from an independent historian. History obtained from or confirmed by: Other (Patient's caregiver, Trang) Discharge Plan Discharge Clinical Impression: Labile blood pressure Patient Disposition: Home, Self-Care Additional Instructions: Your blood work was normal. Your kidney function is normal, your liver tests are normal, your troponin (marker of heart damage) was normal, your EKG was unremarkable. High blood pressure instructions: The reason to check your blood pressure at home is to give your doctor an idea of what your blood pressure does when you are not in the doctor's office. Take your blood pressure in the mornings and at night, Mondays , Wednesdays and Fridays for 2 weeks, write down these readings to discuss them with your doctor at your next visit. If your doctor thinks that your blood pressures are too high then they may start you on blood pressure medications or continue to monitor your blood pressure. If your doctor changes your blood pressure medications it will take anywhere from 2-6 week before these medications work to reduce your blood pressure. Follow-up with your doctor to discuss your blood pressure readings in 2 weeks Please return to the emergency department if your symptoms get worse or if you develop any new symptoms that are concerning to you. Prescriptions: No Action atorvastatin 10 mg tablet 10 mg PO DAILY tamsulosin 0.4 mg capsule 0.4 mg PO BID mirtazapine 15 mg tablet 15 mg PO BEDTIME carbidopa-levodopa 25-100 mg tablet 1 tab PO 5XD aspirin 81 mg Tablet,Delayed Release (Dr/Ec) 81 mg PO DAILY phenytoin sodium extended 300 mg capsule 300 mg PO DAILY quetiapine 50 mg tablet 50 mg PO BEDTIME dexamethasone 6 mg tablet 6 mg PO DAILY Qty: 5 0RF dexamethasone 6 mg tablet 6 mg PO DAILY Qty: 5 0RF Print Language: Slovenian
[2023-10-09 17:48] VITALS: BP 161/79; PULSE 60; RESP 16; O2SAT 97
[2023-10-09 18:33] LABS: MANUAL DIFF FLAG NO
[2023-10-09 18:37] LABS: Basophils Percent Auto 0.5 % (0-2); Eosinophils Absolute Auto 0.1 X10*3/uL (0.0-0.4); Eosinophils Percent Auto 1.8 % (0-4); Hematocrit 40.9 % (42.0-52.0); Hemoglobin 13.9 g/dl (14.0-18.0); Imm Gran Abs Auto 0.02 X10*3/uL (0.00-0.03); Imm Gran Pct Auto 0.4 % (0.0-0.4); Lymphocytes Percent Auto 18.3 % (20-40); Mean Corpuscular Hemoglobin 31.2 pg (27.0-33.0); Mean Corpuscular Volume 91.9 fL (80.0-98.0); Mean Platelet Volume 9.4 fL (9.4-12.4); Monocytes Absolute Auto 0.6 X10*3/uL (0.1-1.2); Monocytes Percent Auto 11.3 % (2-11); Neutrophils Absolute Auto 3.9 x10*3/uL (2.0-8.3); Neutrophils Percent Auto 67.7 % (45-73); Platelet Count 170 X10*3/uL (160-400); Red Blood Count 4.45 X10*6/uL (4.60-5.80); Red Cell Distribution Width 12.5 % (11.0-16.0); White Blood Count 5.7 X10*3/uL (4.8-10.8)
[2023-10-09 18:56] LABS: Alanine Aminotransferase < 5 U/L (0-40); Albumin Level 4.1 g/dL (3.5-5.0); Alkaline Phosphatase 65 U/L (39-117); Anion Gap 13 (12-20); Aspartate Amino Transferase 13 U/L (5-37); Bilirubin Total 0.4 mg/dL (0.0-1.0); Blood Urea Nitrogen 11 mg/dL (9-16); Calcium 9.2 mg/dL (8.4-10.2); Carbon Dioxide 28 mmol/L (22-29); Chloride 101 mmol/L (96-108); Creatinine Clr Calc Pharmacy 70.7; Estimated Glomerular Filt Rate > 60; Glucose Random 112 mg/dL (60-115); Potassium 4.5 mmol/L (3.3-5.1); Sodium 137 mmol/L (135-145); Total Protein 6.6 g/dL (6.5-8.0)
[2023-10-09 19:00] LABS: Troponin-I High Sensitivity 2.7 ng/L (<3.5-35.0)
[2023-10-09 19:09] VITALS: BP 163/80; PULSE 63; RESP 16; TEMP 36.7; O2SAT 96
[2023-10-09 19:18] LABS: Appearance Urine Clear; Color Urine Yellow; Glucose Urine UA Negative (Negative); Leukocyte Esterase Urine Negative (Negative); Nitrite Urine Negative (Negative); Specific Gravity - Urine <= 1.005 (1.005-1.025); Urine Blood Negative (Negative); Urine Ketones Negative (Negative); Urine Protein Negative (Neg-Trace)
[2023-10-09 21:04] VITALS: BP 157/82; PULSE 63; RESP 16; TEMP 36.7; O2SAT 96
--- NOTE | 2023-10-09 21:05 | PC.NURSE ---
Patient stated he felt wet while waiting for EMS to arrive for transport home. Offered to clean up patient, patient and [employer]PORATE [employer]CIAL ANALYST both adamantly declined, stating they would rather clean up at home. Patient given call alejandra to ring if they changed their mind.
== END 2023-10-09 21:06 | disposition home or self-care (01) ==
PROVIDERS: Emergency Provider Emergency Medicine Emergency Medical Services; PCP Internal Medicine Medical Oncology
DX: R09.89 Other specified symptoms and signs involving the circulatory and respiratory systems (principal); G20.A1 Parkinson's disease without dyskinesia, without mention of fluctuations; F03.90 Unspecified dementia, unspecified severity, without behavioral disturbance, psychotic disturbance, mood disturbance, and anxiety; R51.9 Headache, unspecified; M54.2 Cervicalgia; E78.2 Mixed hyperlipidemia; Z79.899 Other long term (current) drug therapy
CPT/HCPCS: 36415; 80053; 81003; 84484; 85025; 93005; 99283; 99284

== ENCOUNTER → 2023-10-09 17:32 | Outpatient (BNV) | payer MEDICARE, SELFPAY | PROVIDERS: Emergency Provider Emergency Medicine Emergency Medical Services; PCP Internal Medicine Medical Oncology; Visit Provider Internal Medicine Cardiovascular Disease | DX: R94.31 Abnormal electrocardiogram [ECG] [EKG] (principal) | CPT/HCPCS: 93010 ==